=== PATIENT | female | born 1985 | race Caucasian/White ===

== ENCOUNTER 2019-04-15 20:49 | Observation (INO) | payer OTHER ==
[2019-04-15 21:41] LABS: Basophils % (A) 0 %; Eosinophils # (A) 0.1 k/uL (0-0.7); Eosinophils % (A) 0 %; HCT 36.6 % (34.0-46.0); HGB 12.5 gm/dL (11.4-16.0); Lymphocytes # (A) 0.8 k/uL (1.0-4.8); Lymphocytes % (A) 5 %; MCH 31.6 pg (25.0-35.0); MCHC 34.3 g/dL (31.0-37.0); MCV 92.1 fL (80.0-100.0); Mean Platelet Volume 6.8; Monocytes # (A) 0.4 k/uL (0-1.0); Monocytes % (A) 3 %; Neutrophils # (A) 13.1 k/uL (1.3-7.7); Neutrophils % (A) 91 %; Platelet Count 237 k/uL (150-450); RBC 3.97 m/uL (3.80-5.40); RDW 12.2 % (11.5-15.5); WBC 14.4 k/uL (3.8-10.6)
[2019-04-15 21:54] LABS: Appearance,Urine Cloudy (Clear); Bacteria,Urine Few /hpf; Bilirubin,Urine Negative (Negative); Blood,Urine Negative (Negative); Budding Yeast,Urine Occasional /hpf; Color,Urine Light Yellow; Glucose,Urine (UA) Negative (Negative); Hyaline Casts,Urine 1 /lpf (0-2); Ketones,Urine Negative (Negative); Leukocyte Esterase,Urine Large (Negative); Mucus,Urine Rare /hpf; Nitrite,Urine Negative (Negative); Protein,Urine Negative (Negative); RBC,Urine 2 /hpf (0-5); Specific Gravity,Urine 1.012 (1.001-1.035); Squamous Epithelial Cell,Urine 4 /hpf (0-4); Urobilinogen,Urine <2.0 mg/dL (<2.0); WBC,Urine 87 /hpf (0-5)
[2019-04-15 21:57] LABS: ALT 21 U/L (9-52); AST 19 U/L (14-36); African American GFR (CKD) >90 (>60 ml/min/1.73 sqM); Albumin 3.8 g/dL (3.5-5.0); Alkaline Phosphatase 48 U/L (38-126); Anion Gap 9 mmol/L; Blood Urea Nitrogen 6 mg/dL (7-17); Calcium 9.2 mg/dL (8.4-10.2); Carbon Dioxide 21 mmol/L (22-30); Chloride 103 mmol/L (98-107); Glucose 90 mg/dL (74-99); Potassium 3.5 mmol/L (3.5-5.1); Sodium 133 mmol/L (137-145); Total Bilirubin 0.5 mg/dL (0.2-1.3); Total Protein 6.5 g/dL (6.3-8.2)
[2019-04-15 22:05] LABS: INR 0.9 (<1.2); Partial Thromboplastin Time 21.5 sec (22.0-30.0); Prothrombin Time 9.4 sec (9.0-12.0)
[2019-04-15] MEDS ORDERED: cefTRIAXone IN SWFI 1,000 MG/10 ML SYRINGE IVP STA (22:39)
[2019-04-15] MEDS ORDERED: KETOROLAC 30 MG/ML 1 ML VIAL IVP STA (22:39)
[2019-04-15] MEDS ORDERED: SODIUM CHLORIDE 0.9% 1,000 ML IV ONE (22:39)
[2019-04-15] MEDS ORDERED: ACETAMINOPHEN TAB 325 MG TAB PO STA (22:40)
[2019-04-15] MEDS ORDERED: SODIUM CHLORIDE 0.9% 500 ML 500 ML IV ONE (22:46)
[2019-04-15] MEDS ORDERED: ACETAMINOPHEN TAB 500 MG TAB PO STA (22:46)
--- NOTE | 2019-04-15 23:58 | US ---
EXAMINATION TYPE: US kidneys/renal and bladder DATE OF EXAM: 04/15/2019 COMPARISON: NONE CLINICAL HISTORY: Right flank pain. Right flank pain x 6 hours. Patient is 18 weeks . EXAM MEASUREMENTS: Right Kidney: 11.6 x 6.7 x 4.3 cm Left Kidney: 12.0 x 5.1 x 4.7 cm Right Kidney: Renal pelvis appears dilated. There appears to be minimal hydronephrosis. Left Kidney: No hydronephrosis or masses seen. Measures upper limits of normal. Bladder: Appears anechoic. Bilateral Jets seen: Yes IMPRESSION: There is mild right-sided hydronephrosis but no obstruction seen. The ureteral jets are s een bilaterally. No renal mass.
--- NOTE | 2019-04-16 00:52 | ED ---
Fever HPI <Shavon Hernadez - Last Filed: 04/16/19 01:07> - General Source: patient Mode of arrival: ambulatory Limitations: no limitations <Can Renee - Last Filed: 04/16/19 07:36> - General Chief Complaint: Fever Stated Complaint: 18 WEEKS , POSS KIDNEY PROBLEM Time Seen by Provider: 04/15/19 22:05 - History of Present Illness Initial Comments: 34-year-old female patient presents to the emergency department today for evaluation of right flank pain. Patient states she is 18 weeks . States that symptoms started earlier this afternoon around 5 PM. She does report nausea with no vomiting. States she has had elevated temperature. She denies any abnormal vaginal bleeding or discharge. Denies any hematuria, dysuria, urinary frequency, urinary urgency. States she is currently receiving care with Dr. Jade. She is very. Denies history of kidney stone or infection. Patient denies any recent rash, shortness breath, chest pain, diarrhea, constipation, numbness, tingling, dizziness, weakness, headache, visual changes, or any other complaints. (Shavon Hernadez) - Related Data Allergies Allergy/AdvReac Type Severity Reaction Status Date / Time No Known Allergies Allergy Verified 04/15/19 21:03 Review of Systems ROS Other: All systems not noted in ROS Statement are negative. <Shavon Hernadez - Last Filed: 04/16/19 01:07> ROS Other: All systems not noted in ROS Statement are negative. <Can Renee - Last Filed: 04/16/19 07:36> ROS Statement: Those systems with pertinent positive or pertinent negative responses have been documented in the HPI. Past Medical History Past Medical History: No Reported History History of Any Multi-Drug Resistant Organisms: None Reported Past Surgical History: No Surgical Hx Reported Past Psychological History: No Psychological Hx Reported Smoking Status: Never smoker Past Alcohol Use History: None Reported Past Drug Use History: None Reported <Can Renee - Last Filed: 04/16/19 07:36> General Exam General appearance: alert, in no apparent distress, other (This is a well- developed, well-nourished adult female patient in no acute distress. Vital sign s upon presentation are temperature 101.8F, pulse 124, respirations 16, blood pressure 111/68, pulse ox 99% on room air.) Eye exam: Present: normal appearance, PERRL, EOMI. Absent: scleral icterus, conjunctival injection, periorbital swelling ENT exam: Present: normal exam, normal oropharynx, mucous membranes moist Respiratory exam: Present: normal lung sounds bilaterally. Absent: respiratory distress, wheezes, rales, rhonchi, stridor Cardiovascular Exam: Present: normal rhythm, tachycardia, normal heart sounds. Absent: systolic murmur, diastolic murmur, rubs, gallop, clicks GI/Abdominal exam: Present: soft, normal bowel sounds. Absent: distended, tenderness, guarding, rebound, rigid Back exam: Present: normal inspection, CVA tenderness (R). Absent: CVA tenderness (L) Neurological exam: Present: alert, oriented X3, CN II-XII intact Psychiatric exam: Present: normal affect, normal mood Skin exam: Present: warm, dry, intact, normal color. Absent: rash <Shavon Hernadez - Last Filed: 04/16/19 01:07> Limitations: no limitations <Can Renee - Last Filed: 04/16/19 07:36> Course <Can Renee - Last Filed: 04/16/19 07:36> Vital Signs 04/15/19 04/15/19 04/16/19 21:01 23:01 00:58 Temperature 101.8 F H 98.4 F Pulse Rate 124 H 89 Pulse Rate [ 95 Right Pulse Oximetery] Respiratory 16 18 18 Rate Blood Pressure 111/68 116/71 Blood Pressure 116/71 [Right Arm] O2 Sat by Pulse 99 97 99 Oximetry - Reevaluation(s) Reevaluation #1: 04/16/19 00:[address] Villela, covering the service. She would like the patient admitted to the OB service. Treatment recommendations are incorporated. (Can Renee) Medical Decision Making - Lab Data Result diagrams: 04/15/19 21:26 04/15/19 21:26 - Radiology Data Radiology results: report reviewed <Shavon Hernadez - Last Filed: 04/16/19 01:07> - Lab Data Result diagrams: 04/15/19 21:26 04/15/19 21:26 <Can Renee - Last Filed: 04/16/19 07:36> - Medical Decision Making 34-year-old female patient who is 18 weeks presents to the emergency department today for evaluation of fever, nausea, and right flank pain. Physical examination did reveal right CVA tenderness. Labs reviewed and did reveal white blood cell count of 14.4. Urinalysis showed large leukocyte esterase, 87 white blood cells, few bacteria, rare mucous, occasional yeast. Ultrasound of the kidneys and bladder showed evidence for right sided nephric edema. No sign of obstruction. Did discuss findings and results with the patient. We'll treat for pyelonephritis with IV Rocephin. My attending Dr. Renee discussed the case with second crusher OB Dr. Villela who recommends admission to the L&D unit. We will continue Rocephin and IV fluids. (Shavon Hernadez) I saw this patient in conjunction with the nurse practitioner. I performed independent history and physical exam. Agree with case management. (Can Renee) - Lab Data Lab Results 04/15/19 04/15/19 04/15/19 Range/Units 21:26 21:26 21:26 WBC 14.4 H (3.8-10.6) k/uL RBC 3.97 (3.80-5.40) m/uL Hgb 12.5 (11.4-16.0) gm/dL Hct 36.6 (34.0-46.0) % MCV 92.1 (80.0-100.0) fL MCH 31.6 (25.0-35.0) pg MCHC 34.3 (31.0-37.0) g/dL RDW 12.2 (11.5-15.5) % Plt Count 237 (150-450) k/uL Neutrophils % 91 % Lymphocytes % 5 % Monocytes % 3 % Eosinophils % 0 % Basophils % 0 % Neutrophils # 13.1 H (1.3-7.7) k/uL Lymphocytes # 0.8 L (1.0-4.8) k/uL Monocytes # 0.4 (0-1.0) k/uL Eosinophils # 0.1 (0-0.7) k/uL Basophils # 0.0 (0-0.2) k/uL PT (9.0-12.0) sec INR (<1.2) APTT (22.0-30.0) sec Sodium 133 L (137-145) mmol/L Potassium 3.5 (3.5-5.1) mmol/L Chloride 103 (98-107) mmol/L Carbon Dioxide 21 L (22-30) mmol/L Anion Gap 9 mmol/L BUN 6 L (7-17) mg/dL Creatinine 0.49 L (0.52-1.04) mg/dL Est GFR (CKD-EPI)AfAm >90 (>60 ml/min/1.73 sqM) Est GFR (CKD-EPI)NonAf >90 (>60 ml/min/1.73 sqM) Glucose 90 (74-99) mg/dL Plasma Lactic Acid Jim 1.3 (0.7-2.0) mmol/L Calcium 9.2 (8.4-10.2) mg/dL Total Bilirubin 0.5 (0.2-1.3) mg/dL AST 19 (14-36) U/L ALT 21 (9-52) U/L Alkaline Phosphatase 48 (38-126) U/L Total Protein 6.5 (6.3-8.2) g/dL Albumin 3.8 (3.5-5.0) g/dL Urine Color Urine Appearance (Clear) Urine pH (5.0-8.0) Ur Specific [place] (1.001-1.035) Urine Protein (Negative) Urine Glucose (UA) (Negative) Urine Ketones (Negative) Urine Blood (Negative) Urine Nitrite (Negative) Urine Bilirubin (Negative) Urine Urobilinogen (<2.0) mg/dL Ur Leukocyte Esterase (Negative) Urine RBC (0-5) /hpf Urine WBC (0-5) /hpf Ur Squamous Epith Cells (0-4) /hpf Urine Bacteria (None) /hpf Hyaline Casts (0-2) /lpf Urine Mucus (None) /hpf Urine Yeast (Budding) (None) /hpf 04/15/19 04/15/19 Range/Units 21:26 21:26 WBC (3.8-10.6) k/uL RBC (3.80-5.40) m/uL Hgb (11.4-16.0) gm/dL Hct (34.0-46.0) % MCV (80.0-100.0) fL MCH (25.0-35.0) pg MCHC (31.0-37.0) g/dL RDW (11.5-15.5) % Plt Count (150-450) k/uL Neutrophils % % Lymphocytes % % Monocytes % % Eosinophils % % Basophils % % Neutrophils # (1.3-7.7) k/uL Lymphocytes # (1.0-4.8) k/uL Monocytes # (0-1.0) k/uL Eosinophils # (0-0.7) k/uL Basophils # (0-0.2) k/uL PT 9.4 (9.0-12.0) sec INR 0.9 (<1.2) APTT 21.5 L (22.0-30.0) sec Sodium (137-145) mmol/L Potassium (3.5-5.1) mmol/L Chloride (98-107) mmol/L Carbon Dioxide (22-30) mmol/L Anion Gap mmol/L BUN (7-17) mg/dL Creatinine (0.52-1.04) mg/dL Est GFR (CKD-EPI)AfAm (>60 ml/min/1.73 sqM) Est GFR (CKD-EPI)NonAf (>60 ml/min/1.73 sqM) Glucose (74-99) mg/dL Plasma Lactic Acid Jim (0.7-2.0) mmol/L Calcium (8.4-10.2) mg/dL Total Bilirubin (0.2-1.3) mg/dL AST (14-36) U/L ALT (9-52) U/L Alkaline Phosphatase (38-126) U/L Total Protein (6.3-8.2) g/dL Albumin (3.5-5.0) g/dL Urine Color Light Yellow Urine Appearance Cloudy H (Clear) Urine pH 7.0 (5.0-8.0) Ur Specific [place] 1.012 (1.001-1.035) Urine Protein Negative (Negative) Urine Glucose (UA) Negative (Negative) Urine Ketones Negative (Negative) Urine Blood Negative (Negative) Urine Nitrite Negative (Negative) Urine Bilirubin Negative (Negative) Urine Urobilinogen <2.0 (<2.0) mg/dL Ur Leukocyte Esterase Large H (Negative) Urine RBC 2 (0-5) /hpf Urine WBC 87 H (0-5) /hpf Ur Squamous Epith Cells 4 (0-4) /hpf Urine Bacteria Few H (None) /hpf Hyaline Casts 1 (0-2) /lpf Urine Mucus Rare H (None) /hpf Urine Yeast (Budding) Occasional H (None) /hpf - Radiology Data Ultrasound of the kidneys and bladder was obtained. Report was reviewed in its entirety. Impression by Dr. Olvera shows mild right-sided hydronephrosis but no obstruction. The ureteral jets are seen bilaterally. No renal mass. (Shavon Hernadez) Disposition Decision to Admit Reason: Admit from EC Decision Date: 04/16/19 Decision Time: 01:00 <Shavon Henradez - Last Filed: 04/16/19 01:07> <Can Renee - Last Filed: 04/16/19 07:36> Clinical Impression: Pyelonephritis during Disposition: ADMITTED IP TO THIS [facility] Condition: Serious
[2019-04-16] MEDS ORDERED: NALOXONE 0.4 MG/ML 1 ML VIAL IV PRN (00:54)
[2019-04-16] MEDS ORDERED: SODIUM CHLORIDE 0.9% 1,000 ML IV SCH (01:00)
[2019-04-16 02:36] VITALS: BMI 27.5
[2019-04-16] MEDS ORDERED: ONDANSETRON 4 MG/2 ML VIAL IVP PRN (03:25)
[2019-04-16] MEDS ORDERED: ACETAMINOPHEN IV (For NPO) 1,000 MG in EMPTY BAG 1 BAG IVPB STA (03:25)
--- NOTE | 2019-04-16 09:32 | P.HPOB ---
History of Present Illness H&P Date: 04/16/19 Chief Complaint: Pain with urination, fevers This is a 34-year-old 3 para 2002 woman who had rather abrupt onset of pain with urination, high fevers and chills yesterday evening at about 6 PM. She is approximately 18 weeks , estimated due date 09/14/2019. She denies alber blood in the urine or vaginal discharge. She has mild right sided back pain. She did have nausea and vomiting yesterday evening. She was seen in the emergency room and urinalysis is positive. White blood cell count of 14.4. Renal ultrasound shows mild right-sided hydronephrosis with no obstruction. Temperature max at 3 AM was 103. She is admitted with pyelonephritis for IV antibiotics. Review of Systems Constitutional: Reports chills, Reports fever, Reports sweats Cardiovascular: Denies chest pain, Denies shortness of breath Respiratory: Denies cough Gastrointestinal: Reports nausea, Reports vomiting, Denies BRBPR, Denies change in bowel habits, Denies constipation, Denies diarrhea Genitourinary: Reports dysuria, Reports flank pain, Reports urgency, Reports urinary frequency, Denies hematuria, Denies kidney stones, Denies vaginal discharge Musculoskeletal: Reports low back pain Psychiatric: Denies depression Hematologic/Lymphatic: Denies easy bleeding, Denies easy bruising Past Medical History Past Medical History: No Reported History Additional Past Medical History / Comment(s): 2 History of Any Multi-Drug Resistant Organisms: None Reported Past Surgical History: No Surgical Hx Reported Past Anesthesia/Blood Transfusion Reactions: Motion Sickness Past Psychological History: No Psychological Hx Reported Smoking Status: Never smoker Past Alcohol Use History: None Reported Past Drug Use History: None Reported - Past Family History Mother History Unknown: Yes Medications and Allergies Allergies Allergy/AdvReac Type Severity Reaction Status Date / Time No Known Allergies Allergy Verified 04/15/19 21:03 Exam Vital Signs Temp Pulse Pulse Resp BP BP Pulse Ox 04/16/19 08:00 98.3 F 100 16 98/53 04/16/19 05:25 100.2 F H 110 H 16 98/51 04/16/19 04:30 102.3 F H 04/16/19 03:35 103 F H 117 H 16 100/50 04/16/19 02:30 97.9 F 110 H 16 127/80 98 04/16/19 02:29 97.9 F 110 H 16 127/80 98 04/16/19 00:58 98.4 F 89 18 116/71 99 04/15/19 23:01 95 18 116/71 97 04/15/19 21:01 101.8 F H 124 H 16 111/68 99 Intake and Output 04/15/19 04/16/19 04/16/19 22:59 06:59 14:59 Other: Weight 70.488 kg This is a pleasant female in no acute distress. Targeted physical exam is performed. The lungs are clear to auscultation bilaterally and her breathing is unlabored. Her heart is of regular rate and rhythm. The abdomen is soft and nontender. She has a gravid uterus consistent with 18 week size gestation. She has mild suprapubic tenderness. She has mild right CVA tenderness. Pelvic examination is deferred. Bilateral extremities free of any edema or erythema. She has positive heart tones by external Doppler. Results Result Diagrams: 04/15/19 21:26 04/15/19 21:26 Abnormal Lab Results - Last 24 Hours (Table) 04/15/19 04/15/19 04/15/19 Range/Units 21:26 21:26 21:26 WBC 14.4 H (3.8-10.6) k/uL Neutrophils # 13.1 H (1.3-7.7) k/uL Lymphocytes # 0.8 L (1.0-4.8) k/uL APTT 21.5 L (22.0-30.0) sec Sodium 133 L (137-145) mmol/L Carbon Dioxide 21 L (22-30) mmol/L BUN 6 L (7-17) mg/dL Creatinine 0.49 L (0.52-1.04) mg/dL Urine Appearance (Clear) Ur Leukocyte Esterase (Negative) Urine WBC (0-5) /hpf Urine Bacteria (None) /hpf Urine Mucus (None) /hpf Urine Yeast (Budding) (None) /hpf 04/15/19 Range/Units 21:26 WBC (3.8-10.6) k/uL Neutrophils # (1.3-7.7) k/uL Lymphocytes # (1.0-4.8) k/uL APTT (22.0-30.0) sec Sodium (137-145) mmol/L Carbon Dioxide (22-30) mmol/L BUN (7-17) mg/dL Creatinine (0.52-1.04) mg/dL Urine Appearance Cloudy H (Clear) Ur Leukocyte Esterase Large H (Negative) Urine WBC 87 H (0-5) /hpf Urine Bacteria Few H (None) /hpf Urine Mucus Rare H (None) /hpf Urine Yeast (Budding) Occasional H (None) /hpf Microbiology - Last 24 Hours (Table) 04/15/19 21:26 Urine Culture - Preliminary Urine,Voided US - abdomen: report reviewed Assessment and Plan (1) Pyelonephritis during Current Visit: Yes Status: Acute Code(s): O23.00 - INFECTIONS OF KIDNEY IN , UNSPECIFIED TRIMESTER SNOMED Code(s): 54893439516029 Plan: 34-year-old 3 para 2 woman admitted at 18 weeks gestation for acute pyelonephritis. T-max 103 at 3 AM on 04/16/2019. She is on IV Rocephin. Plan will be to continue IV antibiotics until at least 24 hours afebrile. Plan is reviewed with the patient and her and all questions are answered. Urine cultures pending. monitoring by external Doppler once daily. DVT prophylaxis. Time with Patient: Less than 30
[2019-04-16] MEDS: LACTATED RINGERS 1,000 ML IV SCH (10:51)
[2019-04-16 10:53] LABS: Basophils % (A) 0 %; Eosinophils % (A) 0 %; HCT 32.4 % (34.0-46.0); HGB 11.1 gm/dL (11.4-16.0); Lymphocytes # (A) 0.9 k/uL (1.0-4.8); Lymphocytes % (A) 6 %; MCH 32.4 pg (25.0-35.0); MCHC 34.4 g/dL (31.0-37.0); MCV 94.3 fL (80.0-100.0); Mean Platelet Volume 6.2; Monocytes # (A) 0.4 k/uL (0-1.0); Monocytes % (A) 3 %; Neutrophils # (A) 13.4 k/uL (1.3-7.7); Neutrophils % (A) 91 %; Platelet Count 230 k/uL (150-450); RBC 3.43 m/uL (3.80-5.40); RDW 12.3 % (11.5-15.5); WBC 14.8 k/uL (3.8-10.6)
[2019-04-17] MEDS: LACTATED RINGERS 1,000 ML IV SCH ×5 (03:53→21:05)
[2019-04-17 07:17] LABS: Basophils % (A) 0 %; Eosinophils # (A) 0.1 k/uL (0-0.7); Eosinophils % (A) 1 %; HCT 28.8 % (34.0-46.0); Lymphocytes # (A) 1.1 k/uL (1.0-4.8); Lymphocytes % (A) 11 %; MCH 32.8 pg (25.0-35.0); MCHC 34.6 g/dL (31.0-37.0); MCV 94.6 fL (80.0-100.0); Mean Platelet Volume 5.9; Monocytes # (A) 0.4 k/uL (0-1.0); Monocytes % (A) 4 %; Neutrophils # (A) 8.6 k/uL (1.3-7.7); Neutrophils % (A) 83 %; Platelet Count 194 k/uL (150-450); RBC 3.05 m/uL (3.80-5.40); RDW 12.5 % (11.5-15.5); WBC 10.4 k/uL (3.8-10.6)
--- NOTE | 2019-04-17 10:54 | P.PN ---
Subjective Progress Note Date: 04/17/19 Principal diagnosis: 18+ weeks, right pyelonephritis The patient reports she feels significantly better than upon admission. She does still have some right flank discomfort which is significantly improved. She denies nausea and has not felt febrile in some time. The fetus is active. Objective - Vital Signs Vital signs: Vital Signs Temp 98.8 F 04/17/19 08:39 Pulse 109 H 04/17/19 08:39 Resp 16 04/17/19 08:39 BP 104/57 04/17/19 08:39 Pulse Ox 98 04/17/19 04:45 Intake & Output 04/16/19 04/17/19 04/17/19 18:59 06:59 18:59 Intake Total 300 Balance 300 Intake: Oral 300 Other: # Voids 2 4 - Exam In general, this is a well-developed, well-nourished white female in no acute distress. Her abdomen is gravid, nondistended, soft, nontender, and without any palpable masses aside from uterine fundus which is below the umbilicus. There is no left flank tenderness however the right flank remains slightly tender though significantly improved by the patient's report. Her extremities have no significant cyanosis, clubbing, or edema and are nontender to palpation bilaterally. - Labs CBC & Chem 7: 04/17/19 06:46 04/15/19 21:26 Labs: Abnormal Lab Results - Last 24 Hours (Table) 04/16/19 04/17/19 Range/Units 10:33 06:46 WBC 14.8 H (3.8-10.6) k/uL RBC 3.43 L 3.05 L (3.80-5.40) m/uL Hgb 11.1 L 10.0 L (11.4-16.0) gm/dL Hct 32.4 L 28.8 L (34.0-46.0) % Neutrophils # 13.4 H 8.6 H (1.3-7.7) k/uL Lymphocytes # 0.9 L (1.0-4.8) k/uL Microbiology - Last 24 Hours (Table) 04/15/19 21:26 Blood Culture - Preliminary Blood No Growth after 24 hours Assessment and Plan (1) Pyelonephritis during Current Visit: Yes Status: Acute Code(s): O23.00 - INFECTIONS OF KIDNEY IN , UNSPECIFIED TRIMESTER SNOMED Code(s): 88453805663910 Plan: Continue IV antibiotics until at least 48 hours afebrile and with significant clinical improvement. Given her current course, I would anticipate possible dis charge home tomorrow morning pending at complications. I have strongly encouraged her to ambulate in the hallways routinely. Otherwise continue routine care.
[2019-04-17] MEDS: ACETAMINOPHEN TAB 325 MG TAB PO PRN ×2 (11:36→19:51)
[2019-04-18] MEDS: LACTATED RINGERS 1,000 ML IV SCH (04:10)
[2019-04-18 09:14] VITALS: BP 105/64; PULSE 99; RESP 16; TEMP 99
--- NOTE | 2019-04-18 11:10 | P.DS ---
Providers Date of admission: 04/16/19 01:12 Expected date of discharge: 04/18/19 Attending physician: Rox Villela Primary care physician: Beto Griffith - Discharge Diagnosis(es) (1) Pyelonephritis during Current Visit: Yes Status: Acute Hospital Course: The patient is a 34-year-old 3 para 2001Admitted through the emergency room with of acute onset of pain with urination as well as fever and chills at 18 weeks of gestation. In the emergency room, she was found to have a temperature of approximately 103 with an elevated white blood cell count. The diagnosis of right pyelonephritis was made and the patient is admitted for IV antibiotics. She was started on Rocephin and defervesced almost immediately. At presentation, she had significant right flank pain and abdominal tenderness as result. Over the course of the next 48 hours she had no further spikes in temperature with the highest being 100.3 less than 24 hours after admission. She had significant resolution of all of her symptoms over the course of her admission as well. At slightly more than 48 hours after admission, she was found with a normal white count and had been afebrile for greater than 48 hours with significant clinical improvement. She denied any ongoing flank pain at this time and was deemed stable for discharge. There were no complicatio ns during the and the fetus remains active at this time. She's had no vaginal concerns of any kind either. She was discharged home to follow-up in the office as previously scheduled in 2 days for anatomic ultrasound as well as normal visit. Urine culture demonstrated greater than 100,000 colonies of E. coli sensitive to every antibiotics tested. As result, she was given a prescription for Bactrim DS, 1 by mouth twice a day 7 days, dispense 14 with no refills. She was instructed to call for any increasing symptoms or any other problems as needed. Procedures: #1. IV antibiotics #2. Urine culture #3. IV hydration Patient Condition at Discharge: Good Plan - Discharge Summary Follow up Appointment(s)/Referral(s): Beto Griffith Jr, DO [Primary Care Provider] - 1-2 days Yuliana Jade MD [STAFF PHYSICIAN] - 1-2 Days Discharge Disposition: HOME SELF-CARE
== END 2019-04-18 11:50 | disposition home or self-care (01) ==
LOC: EC 20:49 → 4FBP 04-16 01:12
PROVIDERS: ADMIT Obstetrics & Gynecology Obstetrics; ATTEND Obstetrics & Gynecology Obstetrics
DX: O23.02 Infections of kidney in pregnancy, second trimester (principal); N10 Acute pyelonephritis; Z3A.18 18 weeks gestation of pregnancy
CPT/HCPCS: 96361 ×3; 96365; 96367; 96375 ×2; 99284; 36415; 80053; 83605; 85025 ×3; 85610; 85730; 81001; 87040; 87086; 87077; 87186; 76770; G0378 ×3; J2405; J0696 ×3; J0131

== ENCOUNTER 2019-09-14 14:48 | Inpatient (IN) | payer OTHER ==
[2019-09-16] MEDS ORDERED: TERBUTALINE 1 MG/ML VIAL SQ PRN (06:19)
[2019-09-16] MEDS ORDERED: METHYLERGONOVINE 0.2 MG/ML 1 ML AMP IM PRN (06:19)
[2019-09-16] MEDS ORDERED: CARBOPROST TROMETHAMINE 250 MCG/ML 1 ML AMP IM PRN (06:19)
[2019-09-16] MEDS ORDERED: LIDOCAINE 0.5% (PF) 5 MG/ML (50 ML SDV) SQ PRN (06:19)
[2019-09-16] MEDS ORDERED: OXYTOCIN 10 UNIT/ML 1 ML VIAL IM PRN (06:19)
[2019-09-16] MEDS ORDERED: PENICILLIN G POTASSIUM 5,000,000 UNIT in DEXTROSE 5% IN WATER 100 ML IVPB STA ×2 (06:19)
[2019-09-16] MEDS ORDERED: OXYTOCIN 30 UNITS/500 ML NS 30 UNIT in SALINE 1 500ML.BAG IV SCH (06:30)
[2019-09-16] MEDS: LACTATED RINGERS 1,000 ML IV SCH ×3 (06:43→11:57)
--- NOTE | 2019-09-16 07:07 | P.HPOB ---
History of Present Illness H&P Date: 09/16/19 Chief Complaint: Postdates This is a 34 year old 3 para 2002 woman with an estimated due date of 09/14/2019 by last menstrual period consistent with second trimester ultrasound. She is admitted at 40-2/7 weeks' gestation for postdates induction of labor. Her was complicated by pyelonephritis at 18 weeks which was treated with inpatient antibiotics. The rest the has been smooth. She is known group B strep positive. Laboratory data: Blood type O positive, antibody screen negative, rubella immune, VDRL nonreactive, hepatitis B surface antigen negative, gonorrhea and clinic cultures negative, diabetes screening negative, group B strep positive. Obstetric history: 2 at term in 2009 and 2012, uncomplicated Review of Systems All systems: negative Past Medical History Past Medical History: No Reported History Additional Past Medical History / Comment(s): 2 History of Any Multi-Drug Resistant Organisms: None Reported Past Surgical History: No Surgical Hx Reported Past Anesthesia/Blood Transfusion Reactions: Motion Sickness Past Psychological History: No Psychological Hx Reported Smoking Status: Never smoker Past Alcohol Use History: None Reported Past Drug Use History: None Reported - Past Family History Mother History Unknown: Yes Medications and Allergies Home Medications Medication Instructions Recorded Confirmed Type Pnv,Calcium 72/Iron/Folic Acid 1 each PO DAILY 09/16/19 09/16/19 History [ Plus Tablet] Allergies Allergy/AdvReac Type Severity Reaction Status Date / Time No Known Allergies Allergy Verified 09/16/19 06:17 Exam Intake and Output 09/15/19 09/16/19 09/16/19 22:59 06:59 14:59 Other: Weight 76.657 kg This is a pleasant, comfortable appearing female who is visibly gravid. HEENT exam is unremarkable. Breathing is unlabored and the heart is regular rate and rhythm. The abdomen is gravid with a fundal height of approximately 40 cm. Estimated weight 7-7-1/2 pounds. On pelvic examination the cervix is 2 cm dilated, 70% effaced and the vertex in the -3 station. Artificial rupture of membranes is undertaken and clear fluid is noted. heart tones are category 1 by external monitoring and she is not regularly cynthia. Assessment and Plan (1) GBS (group B Streptococcus carrier), +RV culture, currently Current Visit: Yes Status: Acute Code(s): O99.820 - STREPTOCOCCUS B CARRIER STATE COMPLICATING SNOMED Code(s): 7228985937082 (2) Post-dates Current Visit: Yes Status: Acute Code(s): O48.0 - POST-TERM SNOMED Code(s): 35552768 Plan: 34-year-old 3 para 2 at 40-2/7 weeks' gestation admitted for induction of labor. Group B strep positive, prophylactic antibiotics have been initiated. Rh+. status currently reassuring. Pitocin induction of labor per protocol. May have an epidural anesthetic upon request in active labor. Anticipate normal spontaneous vaginal delivery.
[2019-09-16 07:40] LABS: Basophils % (A) 0 %; Eosinophils # (A) 0.1 k/uL (0-0.7); Eosinophils % (A) 1 %; HCT 37.6 % (34.0-46.0); HGB 12.9 gm/dL (11.4-16.0); Lymphocytes % (A) 18 %; MCH 31.6 pg (25.0-35.0); MCHC 34.2 g/dL (31.0-37.0); MCV 92.4 fL (80.0-100.0); Mean Platelet Volume 7.6; Monocytes # (A) 0.6 k/uL (0-1.0); Monocytes % (A) 6 %; Neutrophils % (A) 73 %; Platelet Count 242 k/uL (150-450); RBC 4.07 m/uL (3.80-5.40); RDW 12.5 % (11.5-15.5); WBC 10.9 k/uL (3.8-10.6)
[2019-09-16] MEDS: PENICILLIN G POTASSIUM 2,500,000 UNIT in DEXTROSE 5% IN WATER 100 ML IVPB SCH ×2 (10:33)
[2019-09-16] MEDS ORDERED: ePHEDrine SULFATE/0.9% NACL/PF 50 MG/5 ML SYRINGE IV ONE (11:14)
[2019-09-16] MEDS ORDERED: SODIUM CHLORIDE 0.9% 100 ML BAG ONE (11:14)
[2019-09-16] MEDS ORDERED: fentaNYL (PF) 50 MCG/ML 5 ML AMP ONE (11:14)
[2019-09-16] MEDS ORDERED: ROPIVACAINE 5MG/ML 20ML VIAL ONE (11:14)
[2019-09-16] MEDS ORDERED: diphenhydrAMINE 50 MG CAP PO PRN (14:32)
[2019-09-16] MEDS ORDERED: ACETAMINOPHEN TAB 325 MG TAB PO PRN (14:32)
[2019-09-16] MEDS ORDERED: SIMETHICONE 80 MG CHEWABLE PO PRN (14:32)
[2019-09-16] MEDS ORDERED: IBUPROFEN 600 MG TAB PO PRN (14:32)
[2019-09-16] MEDS ORDERED: WITCH HAZEL 1 EACH MED..PAD TOPICAL PRN (14:32)
[2019-09-16] MEDS ORDERED: HYDROCORTISONE 2.5% RECTAL CREAM 30 GM TUBE RECTAL PRN (14:32)
[2019-09-16] MEDS ORDERED: diphenhydrAMINE 25 MG CAP PO PRN (14:32)
[2019-09-16] MEDS ORDERED: BENZOCAINE/MENTHOL SPRAY 1 GM/SPRAY AEROSOL TOPICAL PRN (14:32)
[2019-09-16] MEDS ORDERED: LANOLIN CREAM 5 GM TUBE TOPICAL PRN (14:32)
[2019-09-16] MEDS ORDERED: ZOLPIDEM 5 MG TAB PO PRN (14:32)
[2019-09-16] MEDS ORDERED: diphenhydrAMINE 50 MG/ML 1 ML VIAL IVP PRN ×2 (14:32)
--- NOTE | 2019-09-16 14:32 | P.PROBDLV ---
Vaginal Delivery Note - . Vaginal Delivery Note: Findings: Male in the vertex right occiput anterior position with Apgars of 7 at 1 minute and 9 at 5 minutes weighing 8 lbs. 5 oz., 3775 g. Nuchal cord 2. Shoulder dystocia. EBL 100 mL's. Delivery summary: This is a 34 year old 3 para 2 woman who is admitted at 40-2/7 weeks' gestation for postdates induction of labor. Following admission she went underwent a Pitocin induction of labor per protocol. She received group B strep prophylactic antibiotics. She underwent artificial rupture of membranes at 2 cm dilated and clear fluid was noted. She had category 1 heart tones throughout the first stage of labor. She progressed to 4 cm dilated at which time she received an epidural anesthetic. Following placement of the epidural she progressed to 7 cm dilated. She reached complete cervical dilation by approximately 1400. She commenced pushing. After approximately 15 minutes she was . She was repositioned, prepped and draped. It is additional maternal effort the head did deliver and an immediate "turtle sign" was noted. Assessment was the infant was in the right occiput anterior position. A nuchal cord 1 was reduced. Gentle downward traction on the shoulder did not facilitate any movement. The patient was placed in Criselda position and the anterior, right shoulder was internally rotated, towards the maternal right. This did facilitate delivery of the infant. Total time of shoulder dystocia was less than 30 seconds. The infant was delivered onto the field and the nose and mouth were bulb suctioned. Infant was initially placed on the maternal abdomen where the cord was clamped and cut. Infant was taken to the warmer where Apgars were 7 at 1 minute and 9 at 5 minutes. Infant was noted to be vigorous and moving all extremities equally. An intact, three- vessel cord placenta was then delivered following a 5 minute third stage of labor. The perineum was inspected as was the vagina and cervix and no lacerations were noted. The uterus was massaged and was noted to be firm. Pitocin had been initiated on immediately following delivery of the infant. All counts were correct. Both mother and were doing well post delivery. Events of delivery including the short shoulder dystocia were reviewed with the patient and the father of the baby. All questions were answered.
[2019-09-16] MEDS ORDERED: OXYTOCIN 20 UNITS/1000 ML NS 1,000 ML IV SCH (14:45)
[2019-09-16] MEDS: SENNOSIDES-DOCUSATE SODIUM 1 EACH TAB PO SCH (20:54)
[2019-09-17 07:22] LABS: Basophils % (A) 0 %; Eosinophils # (A) 0.1 k/uL (0-0.7); Eosinophils % (A) 1 %; HCT 33.6 % (34.0-46.0); HGB 11.5 gm/dL (11.4-16.0); Lymphocytes % (A) 16 %; MCH 31.7 pg (25.0-35.0); MCHC 34.2 g/dL (31.0-37.0); MCV 92.5 fL (80.0-100.0); Mean Platelet Volume 7.5; Monocytes # (A) 0.7 k/uL (0-1.0); Monocytes % (A) 6 %; Neutrophils # (A) 9.9 k/uL (1.3-7.7); Neutrophils % (A) 76 %; Platelet Count 228 k/uL (150-450); RBC 3.63 m/uL (3.80-5.40); RDW 12.7 % (11.5-15.5)
--- NOTE | 2019-09-17 08:32 | P.DS ---
Providers Date of admission: 09/16/19 06:03 Expected date of discharge: 09/17/19 Attending physician: Yuliana Jade Primary care physician: Beto Griffith - Discharge Diagnosis(es) (1) GBS (group B Streptococcus carrier), +RV culture, currently Current Visit: Yes Status: Acute (2) Post-dates Current Visit: Yes Status: Acute (3) Normal spontaneous vaginal delivery Current Visit: Yes Status: Acute (4) Shoulder dystocia, delivered, current hospitalization Current Visit: Yes Status: Acute (5) Nuchal cord Current Visit: Yes Status: Acute Hospital Course: This is a 34-year-old 3 now para 3 woman who was admitted at 40-2/7 weeks' gestation with postdates induction of labor. She was group B strep positive and prophylactic antibiotics were initiated upon admission. She underwent a Pitocin induction of labor per protocol. She underwent artificial rupture of membranes and received an epidural anesthetic. She had an uncomplicated and a rapid progression of labor through the first stage. She reached complete cervical dilation and commenced pushing. After approximately 20 minutes second stage of labor the infant crowned. With delivery of the head and immediate "turtle sign" was noted. The patient the was placed in Criselda position and the was delivered with internal rotation of the anterior shoulder. Total time of dystocia was less than 30 seconds. Infant's Apgars were 7 at 1 minute and 9 at 5 minutes. Please see the delivery summary for details. Patient's course was unremarkable. The infant is doing well and freely moving all extremities with no sign of injuries or deficits. The patient's lochia is moderate, her fundus is firm and her vital signs are stable. She was therefore discharged home on day #1 with routine instructions for care and follow-up. Patient Condition at Discharge: Good Plan - Discharge Summary New Discharge Prescriptions: No Action Pnv,Calcium 72/Iron/Folic Acid [ Plus Tablet] 1 each PO DAILY Discharge Medication List Pnv,Calcium 72/Iron/Folic Acid [ Plus Tablet] 1 each PO DAILY 09/16/19 [History] Follow up Appointment(s)/Referral(s): Yuliana Jade MD [STAFF PHYSICIAN] - 6 Weeks Activity/Diet/Wound Care/Special Instructions: Follow-up in the office in 6 weeks . Call with any concerning signs or symptoms including heavy vaginal bleeding, severe abdominal pain, fever greater than 101, swelling or redness of the lower extremities, foul vaginal discharge, or signs of depression. Nothing in the vagina for 6 weeks after delivery, specifically no intercourse. Discharge Disposition: HOME SELF-CARE
[2019-09-17] MEDS: SENNOSIDES-DOCUSATE SODIUM 1 EACH TAB PO SCH ×2 (09:12→20:05)
[2019-09-17 09:33] VITALS: RESP 20
[2019-09-17 18:20] VITALS: BP 106/70; PULSE 82; TEMP 98
[2019-09-17] MEDS: PENICILLIN G POTASSIUM 2,500,000 UNIT in DEXTROSE 5% IN WATER 100 ML IVPB SCH ×2 (20:41)
== END 2019-09-17 21:15 | disposition home or self-care (01) | DRG 807 ==
LOC: 4FBP 09-16 06:03
PROVIDERS: ADMIT Obstetrics & Gynecology; ATTEND Obstetrics & Gynecology
PROC: 3E033VJ Introduction of Other Hormone into Peripheral Vein, Percutaneous Approach (ICD-10-PCS; principal; 2019-09-16)
PROC: 3E0R3BZ Introduction of Anesthetic Agent into Spinal Canal, Percutaneous Approach (ICD-10-PCS; principal; 2019-09-16)
PROC: 10E0XZZ Delivery of Products of Conception, External Approach (ICD-10-PCS; principal; 2019-09-16)
PROC: 00HU33Z Insertion of Infusion Device into Spinal Canal, Percutaneous Approach (ICD-10-PCS; principal; 2019-09-16)
PROC: 10907ZC Drainage of Amniotic Fluid, Therapeutic from Products of Conception, Via Natural or Artificial Opening (ICD-10-PCS; principal; 2019-09-16)
DX: O48.0 Post-term pregnancy (principal); Z37.0 Single live birth; O69.81X0 Labor and delivery complicated by cord around neck, without compression, not applicable or unspecified; O99.824 Streptococcus B carrier state complicating childbirth; Z3A.40 40 weeks gestation of pregnancy
CPT/HCPCS: 85025; 86850; 86900; 86901

== ENCOUNTER 2020-09-01 15:07 | Emergency (ER) | payer OTHER ==
[2020-09-01 15:11] VITALS: BP 117/77; PULSE 104; RESP 20; TEMP 98.7
[2020-09-01] MEDS ORDERED: SODIUM CHLORIDE 0.9% 1,000 ML IV STA (15:21)
[2020-09-01] MEDS ORDERED: KETOROLAC 15 MG/ML 1 ML VIAL IVP STA (15:21)
[2020-09-01] MEDS ORDERED: ONDANSETRON 4 MG/2 ML VIAL IVP STA (15:21)
--- NOTE | 2020-09-01 15:33 | ED ---
Abdominal Pain HPI - General Chief Complaint: Abdominal Pain Stated Complaint: Abd Pain Source: patient Mode of arrival: ambulatory Limitations: no limitations - History of Present Illness Initial Comments: The patient relates that her abdominal pain became upon waking this morning. It is primarily into her left lower quadrant but does seem to radiate into her mid abdomen and her right lower quadrant. She denies any previous similar incidents. She states that it was fairly severe earlier and slightly relieved with Tylenol. It seemed to be worse with standing or walking. She had some nausea but denies any vomiting, constipation, diarrhea, fever, or chills. She denies any previous history of ovarian cysts or uterine pathology. She has had previous urinary tract infection and pyelonephritis which required hospitalization when she was . She denies any possibility of currently. No other complaints or modifying factors. - Related Data Home Medications Medication Instructions Recorded Confirmed Pnv,Calcium 72/Iron/Folic Acid 1 each PO DAILY 09/16/19 09/16/19 [ Plus Tablet] Previous Rx's Medication Instructions Recorded Nitrofurantoin Monohyd/M-Cryst 100 mg PO Q12HR #14 cap 09/01/20 [Macrobid] Ondansetron [Zofran] 8 mg PO Q8HR PRN #12 tab 09/01/20 traMADol HCl [Ultram] 50 - 100 mg PO Q6H PRN #15 tab 09/01/20 Allergies Allergy/AdvReac Type Severity Reaction Status Date / Time No Known Allergies Allergy Verified 09/01/20 15:11 Review of Systems ROS Statement: Those systems with pertinent positive or pertinent negative responses have been documented in the HPI. ROS Other: All systems not noted in ROS Statement are negative. Past Medical History Past Medical History: No Reported History Additional Past Medical History / Comment(s): 2 History of Any Multi-Drug Resistant Organisms: None Reported Past Surgical History: No Surgical Hx Reported Past Anesthesia/Blood Transfusion Reactions: Motion Sickness Past Psychological History: No Psychological Hx Reported Smoking Status: Never smoker Past Alcohol Use History: None Reported Past Drug Use History: None Reported - Past Family History Mother History Unknown: Yes General Exam - General Exam Comments Initial Comments: Constitutional: Alert and oriented, no apparent distress Vitals: Reviewed, please see nursing notes HEENT: No gross trauma identified, trachea midline, no respiratory distress Neck: No tenderness, good range of motion Heart: Regular rate and rhythm without murmur Lungs: Clear to auscultation bilaterally, no wheezing rhonchi or rales Abdomen: Mild tenderness noted to the left lower quadrant. There is slight tenderness in the mid abdomen and right lower quadrant. There is no peritoneal signs or flank tenderness noted. Back: No tenderness Neurologic: No gross sensory or motor deficits identified Integumentary: No rash or change in pigmentation Psychiatric: Alert and oriented, appropriate mood and affect Limitations: no limitations Course Vital Signs 09/01/20 15:09 Temperature 98.7 F Pulse Rate 104 H Respiratory 20 Rate Blood Pressure 117/77 O2 Sat by Pulse 99 Oximetry Medical Decision Making - Medical Decision Making The patient was seen and examined. All diagnostics are reviewed. An IV is established. She is hydrated in receives Toradol 15 mg IV as well as 4 mg of Zofran IV. The white blood cell count is slightly elevated. There is an equivocal urinary tract infection. Due to her history of previous pyeloneph ritis she is agreeable with antibiotic treatment. The pelvic ultrasound shows evidence of fluid in the cul-de-sac as well as bilateral ovarian cysts. It is felt as though her symptoms are consistent with a ruptured ovarian cyst. Symptomatic treatment will be prescribed. It is felt as though she stable for discharge. Return parameters are discussed. - Lab Data Result diagrams: 09/01/20 15:48 09/01/20 15:48 Lab Results 09/01/20 09/01/20 09/01/20 Range/Units 15:48 15:48 15:48 WBC 15.4 H (3.8-10.6) k/uL RBC 4.81 (3.80-5.40) m/uL Hgb 15.1 (11.4-16.0) gm/dL Hct 43.8 (34.0-46.0) % MCV 91.1 (80.0-100.0) fL MCH 31.3 (25.0-35.0) pg MCHC 34.4 (31.0-37.0) g/dL RDW 11.3 L (11.5-15.5) % Plt Count 295 (150-450) k/uL MPV 6.7 Neutrophils % 90 % Lymphocytes % 6 % Monocytes % 3 % Eosinophils % 1 % Basophils % 0 % Neutrophils # 13.9 H (1.3-7.7) k/uL Lymphocytes # 0.9 L (1.0-4.8) k/uL Monocytes # 0.4 (0-1.0) k/uL Eosinophils # 0.1 (0-0.7) k/uL Basophils # 0.0 (0-0.2) k/uL PT 9.6 (9.0-12.0) sec INR 0.9 (<1.2) APTT 20.1 L (22.0-30.0) sec Sodium (137-145) mmol/L Potassium (3.5-5.1) mmol/L Chloride (98-107) mmol/L Carbon Dioxide (22-30) mmol/L Anion Gap mmol/L BUN (7-17) mg/dL Creatinine (0.52-1.04) mg/dL Est GFR (CKD-EPI)AfAm (>60 ml/min/1.73 sqM) Est GFR (CKD-EPI)NonAf (>60 ml/min/1.73 sqM) Glucose (74-99) mg/dL Calcium (8.4-10.2) mg/dL Total Bilirubin (0.2-1.3) mg/dL AST (14-36) U/L ALT (4-34) U/L Alkaline Phosphatase (38-126) U/L Total Protein (6.3-8.2) g/dL Albumin (3.5-5.0) g/dL Lipase (23-300) U/L Urine Color Yellow Urine Appearance Clear (Clear) Urine pH 6.5 (5.0-8.0) Ur Specific [place] 1.020 (1.001-1.035) Urine Protein Negative (Negative) Urine Glucose (UA) Negative (Negative) Urine Ketones Negative (Negative) Urine Blood Negative (Negative) Urine Nitrite Negative (Negative) Urine Bilirubin Negative (Negative) Urine Urobilinogen <2.0 (<2.0) mg/dL Ur Leukocyte Esterase Small H (Negative) Urine RBC 2 (0-5) /hpf Urine WBC 5 (0-5) /hpf Ur Squamous Epith Cells 4 (0-4) /hpf Urine Mucus Rare H (None) /hpf Urine HCG, Qual (Not Detectd) 09/01/20 09/01/20 Range/Units 15:48 15:48 WBC (3.8-10.6) k/uL RBC (3.80-5.40) m/uL Hgb (11.4-16.0) gm/dL Hct (34.0-46.0) % MCV (80.0-100.0) fL MCH (25.0-35.0) pg MCHC (31.0-37.0) g/dL RDW (11.5-15.5) % Plt Count (150-450) k/uL MPV Neutrophils % % Lymphocytes % % Monocytes % % Eosinophils % % Basophils % % Neutrophils # (1.3-7.7) k/uL Lymphocytes # (1.0-4.8) k/uL Monocytes # (0-1.0) k/uL Eosinophils # (0-0.7) k/uL Basophils # (0-0.2) k/uL PT (9.0-12.0) sec INR (<1.2) APTT (22.0-30.0) sec Sodium 137 (137-145) mmol/L Potassium 4.0 (3.5-5.1) mmol/L Chloride 101 (98-107) mmol/L Carbon Dioxide 27 (22-30) mmol/L Anion Gap 9 mmol/L BUN 11 (7-17) mg/dL Creatinine 0.67 (0.52-1.04) mg/dL Est GFR (CKD-EPI)AfAm >90 (>60 ml/min/1.73 sqM) Est GFR (CKD-EPI)NonAf >90 (>60 ml/min/1.73 sqM) Glucose 95 (74-99) mg/dL Calcium 9.5 (8.4-10.2) mg/dL Total Bilirubin 0.6 (0.2-1.3) mg/dL AST 55 H (14-36) U/L ALT 52 H (4-34) U/L Alkaline Phosphatase 56 (38-126) U/L Total Protein 7.5 (6.3-8.2) g/dL Albumin 4.8 (3.5-5.0) g/dL Lipase 50 (23-300) U/L Urine Color Urine Appearance (Clear) Urine pH (5.0-8.0) Ur Specific [place] (1.001-1.035) Urine Protein (Negative) Urine Glucose (UA) (Negative) Urine Ketones (Negative) Urine Blood (Negative) Urine Nitrite (Negative) Urine Bilirubin (Negative) Urine Urobilinogen (<2.0) mg/dL Ur Leukocyte Esterase (Negative) Urine RBC (0-5) /hpf Urine WBC (0-5) /hpf Ur Squamous Epith Cells (0-4) /hpf Urine Mucus (None) /hpf Urine HCG, Qual Not Detected (Not Detectd) Disposition Clinical Impression: Pelvic pain, Nausea, Ovarian cyst, Urinary tract infection, Leukocytosis Disposition: HOME SELF-CARE Condition: Good Instructions (If sedation given, give patient instructions): Pelvic Pain in Women (ED), Ovarian Cyst (ED), Urinary Tract Infection in Women (ED) Prescriptions: Nitrofurantoin Monohyd/M-Cryst [Macrobid] 100 mg PO Q12HR #14 cap traMADol HCl [Ultram] 50 - 100 mg PO Q6H PRN #15 tab PRN Reason: Pain Ondansetron [Zofran] 8 mg PO Q8HR PRN #12 tab PRN Reason: Nausea Is patient prescribed a controlled substance at d/c from ED?: Yes When asked, does pt state using other controlled substances?: No If prescribed controlled substance>3 days was MAPS reviewed?: Prescribed <3 Days Referrals: Beto Griffith Jr, [Primary Care Provider] - 1-2 days Time of Disposition: 17:19
[2020-09-01 16:15] LABS: Basophils % (A) 0 %; Eosinophils # (A) 0.1 k/uL (0-0.7); Eosinophils % (A) 1 %; HCT 43.8 % (34.0-46.0); HGB 15.1 gm/dL (11.4-16.0); Lymphocytes # (A) 0.9 k/uL (1.0-4.8); Lymphocytes % (A) 6 %; MCH 31.3 pg (25.0-35.0); MCHC 34.4 g/dL (31.0-37.0); MCV 91.1 fL (80.0-100.0); Mean Platelet Volume 6.7; Monocytes # (A) 0.4 k/uL (0-1.0); Monocytes % (A) 3 %; Neutrophils # (A) 13.9 k/uL (1.3-7.7); Neutrophils % (A) 90 %; Platelet Count 295 k/uL (150-450); RBC 4.81 m/uL (3.80-5.40); RDW 11.3 % (11.5-15.5); WBC 15.4 k/uL (3.8-10.6)
[2020-09-01 16:22] LABS: Appearance,Urine Clear (Clear); Bilirubin,Urine Negative (Negative); Blood,Urine Negative (Negative); Color,Urine Yellow; Glucose,Urine (UA) Negative (Negative); Ketones,Urine Negative (Negative); Leukocyte Esterase,Urine Small (Negative); Mucus,Urine Rare /hpf; Nitrite,Urine Negative (Negative); PH, Urine 6.5 (5.0-8.0); Protein,Urine Negative (Negative); RBC,Urine 2 /hpf (0-5); Squamous Epithelial Cell,Urine 4 /hpf (0-4); Urobilinogen,Urine <2.0 mg/dL (<2.0); WBC,Urine 5 /hpf (0-5)
[2020-09-01 16:24] LABS: ALT 52 U/L (4-34); AST 55 U/L (14-36); African American GFR (CKD) >90 (>60 ml/min/1.73 sqM); Albumin 4.8 g/dL (3.5-5.0); Alkaline Phosphatase 56 U/L (38-126); Anion Gap 9 mmol/L; Blood Urea Nitrogen 11 mg/dL (7-17); Calcium 9.5 mg/dL (8.4-10.2); Carbon Dioxide 27 mmol/L (22-30); Chloride 101 mmol/L (98-107); Glucose 95 mg/dL (74-99); Lipase 50 U/L (23-300); Non-African American GFR(CKD) >90 (>60 ml/min/1.73 sqM); Sodium 137 mmol/L (137-145); Total Bilirubin 0.6 mg/dL (0.2-1.3); Total Protein 7.5 g/dL (6.3-8.2)
[2020-09-01 16:38] LABS: INR 0.9 (<1.2); Partial Thromboplastin Time 20.1 sec (22.0-30.0); Prothrombin Time 9.6 sec (9.0-12.0)
--- NOTE | 2020-09-01 17:06 | US ---
EXAMINATION TYPE: US transvaginal DATE OF EXAM: 09/01/2020 COMPARISON: NONE CLINICAL HISTORY: pelvic pain. LLQ pain today; TECHNIQUE: Transvaginal (TV). Transvaginal sonographic images were medically necessary to better ass ess the following anatomy: ovaries Date of LMP: 08/06/2020 EXAM MEASUREMENTS: Uterus: 9.1 x 6.7 x 4.8 cm Endometrial Stripe: Measures up to 1.8 cm Right Ovary: 4.1 x 2.9 x 2.8 cm Left Ovary: 2.9 x 2.2 x 1.8 cm 1. Uterus: Anteverted wnl 2. Endometrium: Mildly thickened 3. Right Ovary: multiple follicles with largest as simple follicular cyst = 2.1 x 1.9 x 1.9cm. 4. Left Ovary: multiple small follicles Spectral, color and waveform Doppler imaging shows good arterial and venous flow within the ovaries ; there is no evidence for ovarian torsion. 5. Bilateral Adnexa: small amount of free fluid imaged lateral to right ovary. 6. Posterior cul-de-sac: Small to moderate mildly complex free fluid seen. Possible 1.7 x 1.1 x 1.1 c m cystic structure in the posterior cul-de-sac. IMPRESSION: Small to moderate free fluid, mildly complex in the posterior cul-de-sac. Also possible 1.7 cm cystic structure in the posterior cul-de-sac. 2.1 cm right ovarian cyst. No evidence of ovarian torsion. Findings are nonspecific and may relate to functional cysts. Recommend follow-up after 2-3 menstrual cycle to document resolution or stability.
== END 2020-09-01 17:35 | disposition home or self-care (01) ==
LOC: EC 15:07
DX: N39.0 Urinary tract infection, site not specified (principal); N83.201 Unspecified ovarian cyst, right side; D72.829 Elevated white blood cell count, unspecified; N83.202 Unspecified ovarian cyst, left side
CPT/HCPCS: 36415; 80053; 83690; 85025; 85610; 85730; 81001; 81025; 93975; 76830; 99284; 96374; 96375; 96361 ×2; J2405; J1885

== ENCOUNTER 2021-11-15 06:05 | Inpatient (IN) | payer OTHER ==
[2021-11-15] MEDS ORDERED: OXYTOCIN 10 UNIT/ML 1 ML VIAL IM PRN (06:13)
[2021-11-15] MEDS ORDERED: METHYLERGONOVINE 0.2 MG/ML 1 ML AMP IM PRN (06:13)
[2021-11-15] MEDS ORDERED: TERBUTALINE 1 MG/ML VIAL SQ PRN (06:13)
[2021-11-15] MEDS ORDERED: CARBOPROST TROMETHAMINE 250 MCG/ML 1 ML AMP IM PRN (06:13)
[2021-11-15] MEDS ORDERED: LIDOCAINE 1% (PF) 10 MG/ML (30 ML SDV) SQ PRN (06:13)
[2021-11-15] MEDS ORDERED: OXYTOCIN 30 UNITS/500 ML NS 30 UNIT in SALINE 1 500ML.BAG IV SCH ×2 (06:15→13:45)
[2021-11-15] MEDS ORDERED: PENICILLIN G POTASSIUM 5,000,000 UNIT in DEXTROSE 5% IN WATER 100 ML IVPB ONE ×2 (06:30)
[2021-11-15] MEDS: LACTATED RINGERS 1,000 ML IV SCH ×2 (06:35→11:30)
[2021-11-15 06:56] LABS: Basophils % (A) 0 %; Eosinophils # (A) 0.1 k/uL (0-0.7); Eosinophils % (A) 1 %; HCT 40.2 % (34.0-46.0); HGB 13.2 gm/dL (11.4-16.0); Lymphocytes # (A) 1.7 k/uL (1.0-4.8); Lymphocytes % (A) 20 %; MCH 30.7 pg (25.0-35.0); MCHC 32.9 g/dL (31.0-37.0); MCV 93.4 fL (80.0-100.0); Mean Platelet Volume 7.7; Monocytes # (A) 0.4 k/uL (0-1.0); Monocytes % (A) 5 %; Neutrophils # (A) 5.7 k/uL (1.3-7.7); Neutrophils % (A) 71 %; Platelet Count 249 k/uL (150-450); RDW 13.1 % (11.5-15.5); WBC 8.1 k/uL (3.8-10.6)
--- NOTE | 2021-11-15 08:23 | P.HPOB ---
History of Present Illness H&P Date: 11/15/21 Chief Complaint: Postdates This is a 36 year old 4 para 3003 woman with an estimated due date of 11/06/2021 based on 8 week ultrasound. She is admitted at 41-2/7 weeks' gestation for postdates induction of labor. Her has been complicated by the Coblator infection on early in . She has been followed with testing all of which has been reassuring. She is also known to be group B strep positive. Obstetric history significant for normal spontaneous vaginal delivery in 2009, 2012 and 2019. She had a mild shoulder dystocia of an 8 lbs. 5 oz. in 2019. Laboratory data: Blood type O+, antibody screen negative, rubella immune, VDRL nonreactive, hep Eva surface antigen negative, HIV negative, gonorrhea and clinic cultures negative, glucose tolerance testing within normal limits, group B strep positive. Review of Systems All systems: negative Past Medical History Past Medical History: No Reported History Additional Past Medical History / Comment(s): 3 History of Any Multi-Drug Resistant Organisms: None Reported Past Surgical History: No Surgical Hx Reported Past Anesthesia/Blood Transfusion Reactions: No Reported Reaction, Motion Sickness Past Psychological History: No Psychological Hx Reported Smoking Status: Never smoker Past Alcohol Use History: None Reported Past Drug Use History: None Reported - Past Family History Mother History Unknown: Yes Family Medical History: No Reported History Medications and Allergies Home Medications Medication Instructions Recorded Confirmed Type Pnv,Calcium 72/Iron/Folic Acid 1 each PO DAILY 09/16/19 11/15/21 History [ Plus Tablet] Allergies Allergy/AdvReac Type Severity Reaction Status Date / Time No Known Allergies Allergy Verified 09/01/20 15:11 Exam Vital Signs Temp Pulse Resp BP Pulse Ox 11/15/21 06:12 97.6 F 90 16 130/84 98 Intake and Output 11/14/21 11/15/21 11/15/21 22:59 06:59 14:59 Other: Weight 77.111 kg This is a pleasant and comfortable appearing, visibly gravid female. Targeted physical exam is performed. On pelvic examination the cervix is 3 cm dilated, 70% effaced and the vertex in the -3 station. Artificial rupture of membranes is undertaken and clear fluid is noted. heart tones are category 1 and she is irregularly cynthia. Results Result Diagrams: 11/15/21 06:20 Assessment and Plan (1) GBS (group B Streptococcus carrier), +RV culture, currently Current Visit: No Status: Acute Code(s): O99.820 - STREPTOCOCCUS B CARRIER STATE COMPLICATING SNOMED Code(s): 8811197731541 (2) Post-dates Current Visit: No Status: Acute Code(s): O48.0 - POST-TERM SNOMED Code(s): 03759582 (3) Advanced maternal age (AMA) in Current Visit: Yes Status: Acute Code(s): AUT8157 - SNOMED Code(s): 843912583 Plan: This is a 36-year-old 4 para 3003 woman admitted at 41-2/7 weeks' gestation for postdates induction of labor. She is group B strep positive however she and her are declining antibiotic prophylactic therapy. The potential risks of group B strep infection are reviewed and all questions were answered. They decline antibiotics. status is currently reassuring by external monitoring, category 1. Patient does have a history of a mild shoulder dystocia of an 8 lbs. 5 oz. with her previous delivery. I discussed with the patient and her as she is now postdates that she is at risk of another large with possible shoulder dystocia as well. Delivery staff will be on standby and prepared for this event. The infant has measured appropriately in the setting and my current estimated weight is greater than 8 pounds.
[2021-11-15] MEDS: PENICILLIN G POTASSIUM 2,500,000 UNIT in DEXTROSE 5% IN WATER 100 ML IVPB SCH ×4 (11:26→22:07)
[2021-11-15] MEDS ORDERED: ROPIVACAINE 100 MG, fentaNYL (PF). 200 MCG in SODIUM CHLORIDE 0.9% 76 ML EPIDURAL ONE (12:06)
[2021-11-15] MEDS ORDERED: ACETAMINOPHEN TAB 325 MG TAB PO PRN (13:43)
[2021-11-15] MEDS ORDERED: ZOLPIDEM 5 MG TAB PO PRN (13:43)
[2021-11-15] MEDS ORDERED: IBUPROFEN 600 MG TAB PO PRN (13:43)
[2021-11-15] MEDS ORDERED: diphenhydrAMINE 50 MG CAP PO PRN (13:43)
[2021-11-15] MEDS ORDERED: BENZOCAINE/MENTHOL SPRAY 1 GM/SPRAY AEROSOL TOPICAL PRN (13:43)
[2021-11-15] MEDS ORDERED: HYDROCORTISONE 2.5% RECTAL CREAM 30 GM TUBE RECTAL PRN (13:43)
[2021-11-15] MEDS ORDERED: SIMETHICONE 80 MG CHEWABLE PO PRN (13:43)
[2021-11-15] MEDS ORDERED: diphenhydrAMINE 50 MG/ML 1 ML VIAL IVP PRN ×2 (13:43)
[2021-11-15] MEDS ORDERED: LANOLIN CREAM 5 GM TUBE TOPICAL PRN (13:43)
[2021-11-15] MEDS ORDERED: diphenhydrAMINE 25 MG CAP PO PRN (13:43)
--- NOTE | 2021-11-15 13:43 | P.PROBDLV ---
Vaginal Delivery Note - . Vaginal Delivery Note: Findings: Female in the right occiput anterior position with Apgars of 9 at 1 minute and 9 at 5 minutes weighing 7 lbs. 4 oz. Intact, three-vessel cord placenta. No perineal lacerations. EBL 100 mL's. Delivery summary: This is a 36-year-old 4 para 3003 woman who was admitted at 41-2/7 weeks' gestation for postdates induction of labor. Following admission she underwent artificial rupture of membranes and clear fluid was noted. Pitocin induction of labor was initiated per protocol. When she reached 4 cm dilated she received an epidural anesthetic. She then rapidly progressed to complete cervical dilation. She had mild urge to push. heart tones were category 1 throughout her first stage of labor. When she had pushed to she was repositioned, prepped and draped in the Criselda position due to history of previous shoulder dystocia. With additional maternal effort the head delivered from the right occiput anterior position. The anterior followed by the posterior shoulders were rapidly and easily delivered without difficulty. The rest the infant was delivered onto the field. The nose and mouth were bulb suctioned and the was placed on the maternal abdomen. The cord was eventually clamped and cut after approximately 3 minutes. With gentle traction on the cord did become from the body of the placenta. The placenta was in the vagina and was easily grasped and removed intact. The patient rece ived Pitocin following the third stage of labor. The uterus was massaged and was firm well below the level of the umbilicus. The vagina and cervix were inspected and no lacerations were noted. The placenta was thoroughly inspected and was noted to be intact. EBL was approximately 100 mL's. Both mother and were doing well post delivery in the room.
[2021-11-15] MEDS: SENNOSIDES-DOCUSATE SODIUM 1 EACH TAB PO SCH (20:06)
[2021-11-16 06:31] LABS: Basophils # (A) 0.1 k/uL (0-0.2); Basophils % (A) 1 %; Eosinophils # (A) 0.1 k/uL (0-0.7); Eosinophils % (A) 1 %; HCT 35.3 % (34.0-46.0); HGB 11.5 gm/dL (11.4-16.0); Lymphocytes # (A) 1.8 k/uL (1.0-4.8); Lymphocytes % (A) 16 %; MCH 30.6 pg (25.0-35.0); MCHC 32.7 g/dL (31.0-37.0); MCV 93.5 fL (80.0-100.0); Mean Platelet Volume 8.4; Monocytes # (A) 0.5 k/uL (0-1.0); Monocytes % (A) 5 %; Neutrophils # (A) 8.7 k/uL (1.3-7.7); Neutrophils % (A) 78 %; Platelet Count 216 k/uL (150-450); RBC 3.77 m/uL (3.80-5.40); RDW 12.5 % (11.5-15.5); WBC 11.2 k/uL (3.8-10.6)
--- NOTE | 2021-11-16 08:17 | P.DS ---
Providers Date of admission: 11/15/21 06:05 Expected date of discharge: 11/16/21 Attending physician: Yuliana Jade Primary care physician: Stated None - Discharge Diagnosis(es) (1) GBS (group B Streptococcus carrier), +RV culture, currently Current Visit: No Status: Acute (2) Post-dates Current Visit: No Status: Acute (3) Advanced maternal age (AMA) in Current Visit: Yes Status: Acute (4) Normal spontaneous vaginal delivery Current Visit: No Status: Acute Hospital Course: This is a 4 now para 4 woman who was admitted at 41-2/7 weeks' gestation for postdates induction of labor. She was admitted and underwent artificial rupture of membranes and Pitocin induction of labor per protocol. She received an epidural anesthetic and had rapid progression to complete cervical dilation. She had approximately 20 minute second stage of labor to deliver a liveborn female over an intact perineum with Apgars of 9 at 1 minute and 9 at 5 minutes weighing 7 lbs. 4 oz. Please see delivery summary for details. The patient's course was unremarkable. By day #1 she was ambulating and voiding without difficulty. Her lochia was moderate. She was breast-feeding successfully. Her vital signs were stable and her blood work was within normal limits. She was therefore discharged home with routine instructions for care and follow-up. Procedures: Normal spontaneous vaginal delivery Patient Condition at Discharge: Good Plan - Discharge Summary New Discharge Prescriptions: No Action Pnv,Calcium 72/Iron/Folic Acid [ Plus Tablet] 1 each PO DAILY Discharge Medication List Pnv,Calcium 72/Iron/Folic Acid [ Plus Tablet] 1 each PO DAILY 09/16/19 [History] Follow up Appointment(s)/Referral(s): Yuliana Jade MD [STAFF PHYSICIAN] - 6 Weeks Activity/Diet/Wound Care/Special Instructions: Follow-up in the office in 6 weeks . Call with any concerning signs or symptoms including heavy vaginal bleeding, severe abdominal pain, fever greater than 101, swelling or redness of the lower extremities, foul vaginal discharge, or signs of depression. Nothing in the vagina for 6 weeks after delivery, specifically no intercourse. Discharge Disposition: HOME SELF-CARE
[2021-11-16] MEDS: SENNOSIDES-DOCUSATE SODIUM 1 EACH TAB PO SCH ×2 (09:05→19:43)
[2021-11-17 09:17] VITALS: BP 117/72; PULSE 84; RESP 56; TEMP 97.2
[2021-11-17] MEDS: SENNOSIDES-DOCUSATE SODIUM 1 EACH TAB PO SCH (10:58)
== END 2021-11-17 11:01 | disposition home or self-care (01) | DRG 807 ==
LOC: 4FBP 06:05
PROVIDERS: ADMIT Obstetrics & Gynecology; ATTEND Obstetrics & Gynecology
PROC: 10E0XZZ Delivery of Products of Conception, External Approach (ICD-10-PCS; principal; 2021-11-15)
PROC: 3E0R3NZ Introduction of Analgesics, Hypnotics, Sedatives into Spinal Canal, Percutaneous Approach (ICD-10-PCS; principal; 2021-11-15)
PROC: 00HU33Z Insertion of Infusion Device into Spinal Canal, Percutaneous Approach (ICD-10-PCS; principal; 2021-11-15)
PROC: 10907ZC Drainage of Amniotic Fluid, Therapeutic from Products of Conception, Via Natural or Artificial Opening (ICD-10-PCS; principal; 2021-11-15)
PROC: 3E033VJ Introduction of Other Hormone into Peripheral Vein, Percutaneous Approach (ICD-10-PCS; 2021-11-15)
DX: O48.0 Post-term pregnancy (principal); Z37.0 Single live birth; O99.824 Streptococcus B carrier state complicating childbirth; Z3A.41 41 weeks gestation of pregnancy; Z28.310 Unvaccinated for COVID-19
CPT/HCPCS: 85025; 86850; 86900; 86901

== ENCOUNTER 2023-05-09 12:26 | Emergency (ER) | payer OTHER ==
[2023-05-09 13:00] VITALS: RESP 18; TEMP 98.9
--- NOTE | 2023-05-09 13:35 | ED ---
GI Bleed HPI - General Chief complaint: GI Bleed Stated complaint: rectal bleeding Time Seen by Provider: 05/09/23 13:20 Source: patient, RN notes reviewed, old records reviewed Mode of arrival: ambulatory Limitations: no limitations - History of Present Illness Initial comments: This is a 38-year-old female to the emergency department today. Patient Dese for evaluation of blood in her stool. Patient states she has have history of hemorrhoids and has no current rectal pain. Patient states she has not had any diarrheal illnesses lately, no blood thinners he does have history of colonoscopy negative, patient did notice blood mixed with stool as well as on the tissue paper after going to the bathroom prior to arrival. MD complaint: blood on toilet paper, blood streaked stool -: hour(s) Radiation: none Quality: painless Consistency: intermittent, now resolved (One episode) Improves with: none Worsens with: none Context: hemorrhoids Associated Symptoms: denies other symptoms Treatments Prior to Arrival: none - Related Data Home Medications Medication Instructions Recorded Confirmed No Known Home Medications 05/09/23 05/09/23 Allergies Allergy/AdvReac Type Severity Reaction Status Date / Time No Known Allergies Allergy Verified 05/09/23 13:32 Review of Systems ROS Statement: Those systems with pertinent positive or pertinent negative responses have been documented in the HPI. ROS Other: All systems not noted in ROS Statement are negative. Past Medical History Past Medical History: No Reported History Additional Past Medical History / Comment(s): 3 History of Any Multi-Drug Resistant Organisms: None Reported Past Surgical History: No Surgical Hx Reported Past Anesthesia/Blood Transfusion Reactions: No Reported Reaction, Motion Sickness Past Psychological History: No Psychological Hx Reported Smoking Status: Never smoker Past Alcohol Use History: Occasional Past Drug Use History: None Reported - Past Family History Mother History Unknown: Yes Family Medical History: No Reported History General Exam Limitations: no limitations General appearance: alert, in no apparent distress Head exam: Present: atraumatic, normocephalic, normal inspection Eye exam: Present: normal appearance, PERRL, EOMI. Absent: scleral icterus, conjunctival injection, periorbital swelling ENT exam: Present: normal exam, mucous membranes moist Neck exam: Present: normal inspection. Absent: tenderness, meningismus, lymphadenopathy Respiratory exam: Present: normal lung sounds bilaterally. Absent: respiratory distress, wheezes, rales, rhonchi, stridor Cardiovascular Exam: Present: regular rate, normal rhythm, normal heart sounds. Absent: systolic murmur, diastolic murmur, rubs, gallop, clicks GI/Abdominal exam: Present: soft, normal bowel sounds. Absent: distended, tenderness, guarding, rebound, rigid Extremities exam: Present: normal inspection, full ROM, normal capillary refill. Absent: tenderness, pedal edema, joint swelling, calf tenderness Back exam: Present: normal inspection Neurological exam: Present: alert, oriented X3, CN II-XII intact Psychiatric exam: Present: normal affect, normal mood Skin exam: Present: warm, dry, intact, normal color. Absent: rash Course Vital Signs 05/09/23 05/09/23 05/09/23 12:53 13:30 14:00 Temperature 98.9 F Pulse Rate 77 Respiratory 18 18 18 Rate Blood Pressure 144/91 129/83 112/71 O2 Sat by Pulse 99 97 97 Oximetry 05/09/23 05/09/23 05/09/23 14:30 15:00 15:20 Temperature Pulse Rate 79 Respiratory 18 18 18 Rate Blood Pressure 122/84 107/66 O2 Sat by Pulse 98 97 99 Oximetry - Reevaluation(s) Reevaluation #4: 05/09/23 13:34 Was pt. sent in by a medical professional or institution ([facility], [facility], urgent care, hospital, or usp...) When possible be specific @ -no Did you speak to anyone other than the patient for history (EMS, parent, family, police, friend...)? What history was obtained from this source @ -no Did you review nursing and triage notes (agree or disagree)? Why? @ -agree Are old charts reviewed (outside hosp., previous admission, EMS record, old EKG, old radiological studies, urgent care reports/EKG's, usp records)? Report findings @ -yes Differential Diagnosis (chest pain, altered mental status, abdominal pain women, abdominal pain men, vaginal bleeding, weakness, fever, dyspnea, syncope, headache, dizziness, GI bleed, back pain, seizure, CVA, palpatations, mental health, musculoskeletal)? @ -prior EKG interpreted by me (3pts min.). @ -no X-rays interpreted by me (1pt min.). @ -no CT interpreted by me (1pt min.). @ -no U/S interpreted by me (1pt. min.). @ -no What testing was considered but not performed or refused? (CT, X-rays, U/S, labs)? Why? @ -none What meds were considered but not given or refused? Why? @ -none Did you discuss the management of the patient with other professionals (professionals i.e. Dr., PA, [employer], lab, RT, psych nurse, licensed master social worker, verse writer, teacher, division officer weapons department, behavioral health case manager)? Give summary @ -no Was smoking cessation discussed for >3mins.? @ -no Was critical care preformed (if so, how long)? @ -no Were there social determinants of health that impacted care today? How? (Homelessness, low income, unemployed, alcoholism, drug addiction, transportation, low edu. Level, literacy, decrease access to med. care, residential, rehab)? @ -none Was there de-escalation of care discussed even if they declined (Discuss DNR or withdrawal of care, Hospice)? DNR status @ -no What co-morbidities impacted this encounter? (DM, HTN, Smoking, COPD, CAD, Cancer, CVA, ARF, Chemo, Hep., AIDS, mental health diagnosis, sleep apnea, morbid obesity)? @ -none Was patient admitted / discharged? Hospital course, mention meds given and route, prescriptions, significant lab abnormalities, going to OR and other pertinent info. @ - 38 female to the emergency department for evaluation of blood streak stool with history of hemorrhoids. No significant hemorrhoids noticed on exam. No active bleeding throughout ER stay hemoglobin vital signs are normal patient can be discharged home Discharge Undiagnosed new problem with uncertain prognosis? @ -no Drug Therapy requiring intensive monitoring for toxicity (Heparin, Nitro, Insulin, Cardizem)? @ -no Were any procedures done? @ -no Diagnosis/symptom? @ -Blood in stool, GI bleed Acute, or Chronic, or Acute on Chronic? @ -Acute Uncomplicated (without systemic symptoms) or Complicated (systemic symptoms)? @ -Complicated Side effects of treatment? @ -no Exacerbation, Progression, or Severe Exacerbation? @ -exacerbation Poses a threat to life or bodily function? How? (Chest pain, USA, ND, pneumonia, PE, COPD, DKA, ARF, appy, cholecystitis, CVA, Diverticulitis, Homicidal, Suicidal, threat to staff... and all critical care pts) @ -no Medical Decision Making - Medical Decision Making 38 female to the emergency department for evaluation of blood streak stool with history of hemorrhoids. No significant hemorrhoids noticed on exam. No active bleeding throughout ER stay hemoglobin vital signs are normal patient can be discharged home - Lab Data Result diagrams: 05/09/23 13:29 05/09/23 13:29 Lab Results 05/09/23 05/09/23 05/09/23 Range/Units 13:29 13:29 13:29 WBC 7.6 (3.8-10.6) k/uL RBC 4.93 (3.80-5.40) m/uL Hgb 15.7 (11.4-16.0) gm/dL Hct 44.9 (34.0-46.0) % MCV 91.2 (80.0-100.0) fL MCH 31.8 (25.0-35.0) pg MCHC 34.9 (31.0-37.0) g/dL RDW 11.2 L (11.5-15.5) % Plt Count 279 (150-450) k/uL MPV 7.1 Neutrophils % 66 % Lymphocytes % 27 % Monocytes % 4 % Eosinophils % 2 % Basophils % 1 % Neutrophils # 5.0 (1.3-7.7) k/uL Lymphocytes # 2.1 (1.0-4.8) k/uL Monocytes # 0.3 (0-1.0) k/uL Eosinophils # 0.1 (0-0.7) k/uL Basophils # 0.0 (0-0.2) k/uL PT 9.9 L (10.0-12.5) sec INR 0.9 (<1.2) APTT 22.8 (22.0-30.0) sec Sodium 139 (137-145) mmol/L Potassium 4.1 (3.5-5.1) mmol/L Chloride 104 (98-107) mmol/L Carbon Dioxide 24 (22-30) mmol/L Anion Gap 11 mmol/L BUN 15 (7-17) mg/dL Creatinine 0.65 (0.52-1.04) mg/dL Est GFR (CKD-EPI)AfAm >90 (>60 ml/min/1.73 sqM) Est GFR (CKD-EPI)NonAf >90 (>60 ml/min/1.73 sqM) Glucose 89 (74-99) mg/dL Calcium 9.5 (8.4-10.2) mg/dL Magnesium 2.1 (1.6-2.3) mg/dL Total Bilirubin 0.6 (0.2-1.3) mg/dL AST 21 (14-36) U/L ALT 17 (4-34) U/L Alkaline Phosphatase 64 (38-126) U/L Troponin I (0.000-0.034) ng/mL Total Protein 7.7 (6.3-8.2) g/dL Albumin 4.9 (3.5-5.0) g/dL 05/09/23 Range/Units 13:29 WBC (3.8-10.6) k/uL RBC (3.80-5.40) m/uL Hgb (11.4-16.0) gm/dL Hct (34.0-46.0) % MCV (80.0-100.0) fL MCH (25.0-35.0) pg MCHC (31.0-37.0) g/dL RDW (11.5-15.5) % Plt Count (150-450) k/uL MPV Neutrophils % % Lymphocytes % % Monocytes % % Eosinophils % % Basophils % % Neutrophils # (1.3-7.7) k/uL Lymphocytes # (1.0-4.8) k/uL Monocytes # (0-1.0) k/uL Eosinophils # (0-0.7) k/uL Basophils # (0-0.2) k/uL PT (10.0-12.5) sec INR (<1.2) APTT (22.0-30.0) sec Sodium (137-145) mmol/L Potassium (3.5-5.1) mmol/L Chloride (98-107) mmol/L Carbon Dioxide (22-30) mmol/L Anion Gap mmol/L BUN (7-17) mg/dL Creatinine (0.52-1.04) mg/dL Est GFR (CKD-EPI)AfAm (>60 ml/min/1.73 sqM) Est GFR (CKD-EPI)NonAf (>60 ml/min/1.73 sqM) Glucose (74-99) mg/dL Calcium (8.4-10.2) mg/dL Magnesium (1.6-2.3) mg/dL Total Bilirubin (0.2-1.3) mg/dL AST (14-36) U/L ALT (4-34) U/L Alkaline Phosphatase (38-126) U/L Troponin I <0.012 (0.000-0.034) ng/mL Total Protein (6.3-8.2) g/dL Albumin (3.5-5.0) g/dL Disposition Clinical Impression: Lower gastrointestinal hemorrhage Disposition: HOME SELF-CARE Condition: Good Instructions (If sedation given, give patient instructions): Gastrointestinal Bleeding (ED) Is patient prescribed a controlled substance at d/c from ED?: No Referrals: Beto Griffith Jr, [Primary Care Provider] - 1-2 days Yaw Cole MD [Medical Doctor] - 1-2 days
[2023-05-09 13:39] LABS: Basophils % (A) 1 %; Eosinophils # (A) 0.1 k/uL (0-0.7); Eosinophils % (A) 2 %; HCT 44.9 % (34.0-46.0); HGB 15.7 gm/dL (11.4-16.0); Lymphocytes # (A) 2.1 k/uL (1.0-4.8); Lymphocytes % (A) 27 %; MCH 31.8 pg (25.0-35.0); MCHC 34.9 g/dL (31.0-37.0); MCV 91.2 fL (80.0-100.0); Mean Platelet Volume 7.1; Monocytes # (A) 0.3 k/uL (0-1.0); Monocytes % (A) 4 %; Neutrophils % (A) 66 %; Platelet Count 279 k/uL (150-450); RBC 4.93 m/uL (3.80-5.40); RDW 11.2 % (11.5-15.5); WBC 7.6 k/uL (3.8-10.6)
[2023-05-09 13:49] LABS: ALT 17 U/L (4-34); AST 21 U/L (14-36); African American GFR (CKD) >90 (>60 ml/min/1.73 sqM); Albumin 4.9 g/dL (3.5-5.0); Alkaline Phosphatase 64 U/L (38-126); Anion Gap 11 mmol/L; Blood Urea Nitrogen 15 mg/dL (7-17); Calcium 9.5 mg/dL (8.4-10.2); Carbon Dioxide 24 mmol/L (22-30); Chloride 104 mmol/L (98-107); Glucose 89 mg/dL (74-99); Magnesium 2.1 mg/dL (1.6-2.3); Non-African American GFR(CKD) >90 (>60 ml/min/1.73 sqM); Potassium 4.1 mmol/L (3.5-5.1); Sodium 139 mmol/L (137-145); Total Bilirubin 0.6 mg/dL (0.2-1.3); Total Protein 7.7 g/dL (6.3-8.2)
[2023-05-09 13:52] LABS: INR 0.9 (<1.2); Partial Thromboplastin Time 22.8 sec (22.0-30.0); Prothrombin Time 9.9 sec (10.0-12.5)
[2023-05-09 15:16] VITALS: BP 107/66
[2023-05-09 15:37] VITALS: PULSE 79
== END 2023-05-09 15:22 | disposition home or self-care (01) ==
LOC: EC 12:26
DX: K92.2 Gastrointestinal hemorrhage, unspecified (principal)
CPT/HCPCS: 36415; 80053; 83735; 84484; 85025; 85610; 85730; 99285

== ENCOUNTER 2023-06-03 11:29 | Day surgery (SDC) | payer OTHER ==
[2023-05-28 11:19] VITALS: BMI 26.2
[~2023-06-03 11:29] MED LIST: LACTATED RINGERS 1,000 ML IV SCH
[2023-06-03 12:05] VITALS: RESP 16; TEMP 98.2
[2023-06-03] MEDS ORDERED: PROPOFOL 10 MG/ML 20 ML VIAL IV ONE (12:24)
--- NOTE | 2023-06-03 12:40 | P.PCN ---
Date of Procedure: 06/03/23 Procedure(s) Performed: PREOPERATIVE DIAGNOSIS: Rectal bleeding, diverticulitis POSTOPERATIVE DIAGNOSIS: Diverticulosis, small internal and external hemorrhoids PROCEDURE: Colonoscopy with anoscopy ANESTHESIA: MAC SURGEON: Yaw Cole M.D. SPECIMENS: None ENDOSCOPIC PROCEDURE: The patient was placed on the endoscopy table in the left decubitus position. The Olympus colonoscope was inserted into the anus and passed under direct visualization to the base of the cecum. The appendiceal orifice was visualized. From that point the scope was slowly withdrawn inspecting all surfaces carefully. There were no neoplastic inflammatory or polypoid lesions throughout the cecum, ascending, transverse, descending, sigmoid and rectum. There was mild to moderate left-sided diverticulosis noted.. Anal evaluation revealed small hemorrhoidal skin tags. The anal scope was utilized. Very small internal and external hemorrhoids were noted. None of these seemed to be the source of recent bleeding. No hemorrhoidal banding took place. The patient was taken to the recovery room in stable condition per a nesthesia guidelines. RECOMMENDATIONS: Resume diet. Increase fiber.
[2023-06-03 13:06] VITALS: BP 109/72; PULSE 53
== END 2023-06-03 13:16 | disposition home or self-care (01) ==
LOC: ORWHC2ENDO 11:29
PROVIDERS: ATTEND Surgery
DX: K62.5 Hemorrhage of anus and rectum (principal); K57.30 Diverticulosis of large intestine without perforation or abscess without bleeding; K64.4 Residual hemorrhoidal skin tags; K64.8 Other hemorrhoids; Z98.890 Other specified postprocedural states
CPT/HCPCS: 81025; 45378; J2704

== ENCOUNTER 2024-11-07 13:26 | Emergency (ER) | payer OTHER ==
[2024-11-07 13:40] VITALS: BP 123/78; TEMP 99.6
--- NOTE | 2024-11-07 14:50 | XR ---
EXAMINATION TYPE: XR knee complete LT DATE OF EXAM: 11/07/2024 2:45 PM COMPARISON: None CLINICAL INDICATION: Female, 39 years old with history of pain; PHH, pain TECHNIQUE: XR knee complete LT 3 views submitted. FINDINGS: No evidence of any acute osseous pathology, soft tissue swelling, or joint effusion is no raven. IMPRESSION: 1. No acute osseous pathology. 2. Mild tricompartmental osteoarthritic changes. [facility], , 11/07/2024 2:48 PM
[2024-11-07 14:55] LABS: Basophils # (A) 0.03 10*3/uL (0.00-0.10); Basophils % (A) 0.3 %; Eosinophils # (A) 0.16 10*3/uL (0.04-0.35); Eosinophils % (A) 1.7 %; HCT 37.7 % (37.2-46.3); HGB 13.5 g/dL (12.0-15.0); Lymphocytes # (A) 2.05 10*3/uL (0.90-5.00); Lymphocytes % (A) 21.2 %; MCH 31.8 pg (27.0-32.0); MCHC 35.8 g/dL (32.0-37.0); MCV 88.9 fL (80.0-97.0); Mean Platelet Volume 8.8 fL (9.5-12.2); Monocytes # (A) 0.48 10*3/uL (0.20-1.00); Neutrophils # (A) 6.88 10*3/uL (1.80-7.70); Neutrophils % (A) 71.2 %; Platelet Count 270 10*3/uL (140-440); RBC 4.24 10*6/uL (4.10-5.20); RDW 11.9 % (11.5-14.5); WBC 9.66 10*3/uL (4.50-10.00)
[2024-11-07 15:09] LABS: ALT 20 U/L (4-34); AST 19 U/L (14-36); African American GFR (CKD) >90 (>60 ml/min/1.73 sqM); Albumin 4.2 g/dL (3.5-5.0); Alkaline Phosphatase 48 U/L (38-126); Anion Gap 9 mmol/L; Blood Urea Nitrogen 7 mg/dL (7-17); Calcium 9.4 mg/dL (8.4-10.2); Carbon Dioxide 23 mmol/L (22-30); Chloride 102 mmol/L (98-107); Glucose 87 mg/dL (74-99); Non-African American GFR(CKD) >90 (>60 ml/min/1.73 sqM); Potassium 3.8 mmol/L (3.5-5.1); Sodium 134 mmol/L (137-145); Total Bilirubin 0.4 mg/dL (0.2-1.3); Total Protein 6.8 g/dL (6.3-8.2)
--- NOTE | 2024-11-07 16:06 | US ---
EXAMINATION TYPE: Transabdominal DATE OF EXAM: 11/07/2024 3:49 PM COMPARISON: NONE CLINICAL INDICATION: Female, 39 years old with history of new , intermittent lower abd pain; Left pelvic cramping TECHNIQUE: Transabdominal (TA) with grayscale and color Doppler imaging including first trimester pre gnancy. FINDINGS: EXAM MEASUREMENTS: GESTATIONAL AGE / DATING Physician Established: Not yet established Dates by LMP: (8 weeks/5 days) EDC: 06/14/25 Dates by First Scan: No previous this is first scan Dates by Current Scan for: (9 weeks/3 days) EDC: 06/09/25 MATERNAL ANATOMY Uterus: 13.7 x 5.7 x 8.7cm Right Ovary: 2.8 x 2.2 x 2.0cm Left Ovary: 3.7 x 3.8 x 2.8cm Post CDS / Adnexa: wnl Presence of free fluid: no Presence of corpus luteal cyst: yes, anechoic lesion left ovary = 3.0 x 2.0 x 2.4cm GESTATION / SURVEY CRL: 2.6cm (9 weeks/3 days) Gestational Sac morphology: Normal Yolk Sac (normal less than 6mm): 0.4cm Cardiac Activity/Heart Rate: 169 bpm Rhythm: Normal IUP: Viable IUP Date of LMP: 09/07/24 Beta HcG (if available): Not available at this time IMPRESSION: 1. Single live intrauterine with calculated ultrasound age of 9 weeks 3 days by crown rump length with an estimated date of delivery of 06/09/2025 [facility], , 11/07/2024 4:04 PM
[2024-11-07 16:10] LABS: Appearance,Urine Clear (Clear); Bacteria,Urine Occasional /hpf; Bilirubin,Urine Negative (Negative); Blood,Urine Negative (Negative); Color,Urine Colorless; Glucose,Urine (UA) Negative (Negative); Ketones,Urine Negative (Negative); Leukocyte Esterase,Urine Small (Negative); Nitrite,Urine Negative (Negative); PH, Urine 6.5 (5.0-8.0); Protein,Urine Negative (Negative); RBC,Urine 1 /hpf (0-5); Specific Gravity,Urine 1.006 (1.001-1.035); Squamous Epithelial Cell,Urine 3 /hpf (0-4); Urobilinogen,Urine <2.0 mg/dL (<2.0); WBC,Urine 7 /hpf (0-5)
--- NOTE | 2024-11-07 16:50 | ED ---
General Adult HPI - General Chief complaint: Extremity Injury, Lower Stated complaint: L knee pain Time Seen by Provider: 11/07/24 14:20 Source: patient, RN notes reviewed, old records reviewed Mode of arrival: ambulatory Limitations: no limitations - History of Present Illness Initial comments: Patient is a 39-year-old female presents emergency department complaining of primarily left knee pain. States last night she was standing from a seated position on the floor and planted her left knee. Milo some pain in her left knee as she stood up. Since that time it is seems more swollen and painful with full extension and full flexion. He has been able to ambulate on it. He is limping some. No obvious injury. Patient states she is also but is uncertain how far along she is. Denies any vaginal discharge or bleeding but does endorse occasional intermittent abdominal discomfort. Has not yet seen her FI[facility]OMER. Presents for further evaluation at this time. Denies any chest pain or shortness of breath. Denies any other obvious injuries. Is on no medications. No significant past medical history.Patient denies any vaginal bleeding or discharge. Patient is . - Related Data Home Medications Medication Instructions Recorded Confirmed No Known Home Medications 05/09/23 06/03/23 Allergies Allergy/AdvReac Type Severity Reaction Status Date / Time No Known Allergies Allergy Verified 11/07/24 13:40 Review of Systems ROS Statement: Those systems with pertinent positive or pertinent negative responses have been documented in the HPI. Review of Systems: CONST: Denies fever EYES: Denies blurry vision ENT: Denies nasal congestion C/V: Denies Chest pain RESP: Denies shortness of breath GI: Denies abdominal pain : Denies dysuria SKIN: Denies rash. MSK: Endorses left knee pain NEURO: Denies headache ROS Other: All systems not noted in ROS Statement are negative. Past Medical History Past Medical History: No Reported History Additional Past Medical History / Comment(s): RECTAL BLEEDING History of Any Multi-Drug Resistant Organisms: None Reported Past Surgical History: Breast Surgery Additional Past Surgical History / Comment(s): COLONOSCOPY, BREAST AUGMENTATION Past Anesthesia/Blood Transfusion Reactions: Motion Sickness, Postoperative Nausea & Vomiting (PONV) Past Psychological History: No Psychological Hx Reported Smoking Status: Never smoker Past Alcohol Use History: None Reported Past Drug Use History: None Reported - Past Family History Mother History Unknown: Yes Family Medical History: No Reported History General Exam - General Exam Comments Initial Comments: General: Appears in no acute distress. HEAD: Normal with no signs of head trauma. EYES: EOMI ENT: Hearing grossly intact, normal oropharynx. RESPIRATORY: Clear breath sounds bilaterally. No wheezes, rales, or rhonchi. C/V: Regular rate and rhythm. S1 and S2 auscultated, no edema, peripheral pulses 2+ and intact throughout ABD: Abd is soft, nontender, nondistended EXT: Reduced range of motion with full extension and full flexion of the left knee secondary to pain. Can hold the knee in extension against gravity. No obvious increased pain with varus or valgus stress. No obvious deformity. General tenderness to palpation. States the pain is mostly on the inside of the knee. Neurovascular intact throughout the left lower extremity. No other tenderness to palpation along the left lower extremity. SKIN: No rashes or lesions observed on exposed skin. NEURO: Alert and orient x 4. Limitations: no limitations Course Vital Signs 11/07/24 11/07/24 13:38 17:15 Temperature 99.6 F Pulse Rate 83 86 Respiratory 20 18 Rate Blood Pressure 123/78 O2 Sat by Pulse 99 99 Oximetry Medical Decision Making - Medical Decision Making Was pt. sent in by a medical professional or institution (, PA, [employer], urgent care, hospital, or alf...) When possible be specific @ -No Did you speak to anyone other than the patient for history (EMS, parent, family, police, friend...)? What history was obtained from this source @ -No Did you review nursing and triage notes (agree or disagree)? Why? @ -I reviewed and agree with nursing and triage notes Were old charts reviewed (outside hosp., previous admission, EMS record, old EKG, old radiological studies, urgent care reports/EKG's, alf records)? Report findings @ -No old charts were reviewed Differential Diagnosis (chest pain, altered mental status, abdominal pain women, abdominal pain men, vaginal bleeding, weakness, fever, dyspnea, syncope, headache, dizziness, GI bleed, back pain, seizure, CVA, palpatations, mental health, musculoskeletal)? @ -, left knee fracture, left knee sprain, ligament injury. This list is not all inclusive. EKG interpreted by me (3pts min.). @ -None done X-rays interpreted by me (1pt min.). @ -Left knee x-ray negative for any obvious acute traumatic injury CT interpreted by me (1pt min.). @ -None done U/S interpreted by me (1pt. min.). @ - ultrasound remarkable for definitive intrauterine dating at 9 weeks and 3 days. Heart rate is 169 bpm What testing was considered but not performed or refused? (CT, X-rays, U/S, labs)? Why? @ -None What meds were considered but not given or refused? Why? @ -None Did you discuss the management of the patient with other professionals (professionals i.e. , PA, [employer], lab, RT, psych nurse, social security benefits interviewer, watcher automat [employer] goods, teacher, landing signal officer, disease case manager rn)? Give summary @ -No Was smoking cessation discussed for >3mins.? @ -No Was critical care preformed (if so, how long)? @ -No Were there social determinants of health that impacted care today? How? (Homelessness, low income, unemployed, alcoholism, drug addiction, transportation, low edu. Level, literacy, decrease access to med. care, alf, rehab)? @ -No Was there de-escalation of care discussed even if they declined (Discuss DNR or withdrawal of care, Hospice)? DNR status @ -No What co-morbidities impacted this encounter? (DM, HTN, Smoking, COPD, CAD, Cancer, CVA, ARF, Chemo, Hep., AIDS, mental health diagnosis, sleep apnea, morbid obesity)? @ -None Was patient admitted / discharged? Hospital course, mention meds given and route, prescriptions, significant lab abnormalities, going to OR and other pertinent info. @ -Patient presents emergency department complaining of left knee injury that is atraumatic as well as new onset with intermittent abdominal discomfort. We will obtain new onset labs as well as ultrasound and additional left knee x-ray. She was in agreement this plan. Declines analgesia medications. X-ray negative for any obvious acute traumatic injury. Ultrasound showed d efinitive IUP with a adequate heart rate of 169 bpm as well as dating at 9 weeks and 3 days. Patient's laboratory studies otherwise are within acceptable limits. Up to the patient. She expressed understanding. Recommend she follow-up with [facility]. She was in agreement this plan. Strict return precautions discussed. She will be given crutches as well as a knee immobilizer for her left knee. Recommended follow-up with orthopedics if symptoms do not improve as I am concerned for possible internal derangement of the knee. She was in agreement with this plan. I instructed the patient to follow up with their PCP in the next 1-3 days. I explained that the patient should return to the emergency department if they experience any worsening symptoms. Strict return precautions were discussed with the patient. The patient expressed understanding of these instructions. I answered all questions that the patient had. The patient was discharged home in good condition with their prescriptions and follow up information. Undiagnosed new problem with uncertain prognosis? @ -No Drug Therapy requiring intensive monitoring for toxicity (Heparin, Nitro, Insulin, Cardizem)? @ -No Were any procedures done? @ -No Diagnosis/symptom? @ -Left knee sprain, Acute, or Chronic, or Acute on Chronic? @ -Acute Uncomplicated (without systemic symptoms) or Complicated (systemic symptoms)? @ -Uncomplicated Side effects of treatment? @ -No Exacerbation, Progression, or Severe Exacerbation? @ -No Poses a threat to life or bodily function? How? (Chest pain, [place], [place], pneumonia, PE, COPD, DKA, ARF, appy, cholecystitis, CVA, Diverticulitis, Homicidal, Suicidal, threat to staff... and all critical care pts) @ -Unlikely at this time - Lab Data Result diagrams: 11/07/24 14:44 11/07/24 14:44 Lab Results 11/07/24 11/07/24 11/07/24 Range/Units 14:44 14:44 14:44 WBC 9.66 (4.50-10.00) 10*3/uL RBC 4.24 (4.10-5.20) 10*6/uL Hgb 13.5 (12.0-15.0) g/dL Hct 37.7 (37.2-46.3) % MCV 88.9 (80.0-97.0) fL MCH 31.8 (27.0-32.0) pg MCHC 35.8 (32.0-37.0) g/dL Plt Count 270 (140-440) 10*3/uL MPV 8.8 L (9.5-12.2) fL Immature Gran % (Auto) 0.6 % Neutrophils % 71.2 % Lymphocytes % 21.2 % Monocytes % 5.0 % Eosinophils % 1.7 % Basophils % 0.3 % Immature Gran # 0.06 H (0.00-0.04) 10*3/uL Neutrophils # 6.88 (1.80-7.70) 10*3/uL Lymphocytes # 2.05 (0.90-5.00) 10*3/uL Monocytes # 0.48 (0.20-1.00) 10*3/uL Eosinophils # 0.16 (0.04-0.35) 10*3/uL Basophils # 0.03 (0.00-0.10) 10*3/uL Sodium 134 L (137-145) mmol/L Potassium 3.8 (3.5-5.1) mmol/L Chloride 102 (98-107) mmol/L Carbon Dioxide 23 (22-30) mmol/L Anion Gap 9 mmol/L BUN 7 (7-17) mg/dL Creatinine 0.50 L (0.52-1.04) mg/dL Est GFR (CKD-EPI)AfAm >90 (>60 ml/min/1.73 sqM) Est GFR (CKD-EPI)NonAf >90 (>60 ml/min/1.73 sqM) Glucose 87 (74-99) mg/dL Calcium 9.4 (8.4-10.2) mg/dL Total Bilirubin 0.4 (0.2-1.3) mg/dL AST 19 (14-36) U/L ALT 20 (4-34) U/L Alkaline Phosphatase 48 (38-126) U/L Total Protein 6.8 (6.3-8.2) g/dL Albumin 4.2 (3.5-5.0) g/dL HCG, Quant 300593.0 mIU/mL Urine Color Urine Appearance (Clear) Urine pH (5.0-8.0) Ur Specific [place] (1.001-1.035) Urine Protein (Negative) Urine Glucose (UA) (Negative) Urine Ketones (Negative) Urine Blood (Negative) Urine Nitrite (Negative) Urine Bilirubin (Negative) Urine Urobilinogen (<2.0) mg/dL Ur Leukocyte Esterase (Negative) Urine RBC (0-5) /hpf Urine WBC (0-5) /hpf Ur Squamous Epith Cells (0-4) /hpf Urine Bacteria (None) /hpf Blood Type O Positive Blood Type Recheck O Pos Bld Type Recheck Status No Antibody Screen NEGATIVE Spec Expiration Date 11/10/2024234311/07/24 Range/Units 15:58 WBC (4.50-10.00) 10*3/uL RBC (4.10-5.20) 10*6/uL Hgb (12.0-15.0) g/dL Hct (37.2-46.3) % MCV (80.0-97.0) fL MCH (27.0-32.0) pg MCHC (32.0-37.0) g/dL Plt Count (140-440) 10*3/uL MPV (9.5-12.2) fL Immature Gran % (Auto) % Neutrophils % % Lymphocytes % % Monocytes % % Eosinophils % % Basophils % % Immature Gran # (0.00-0.04) 10*3/uL Neutrophils # (1.80-7.70) 10*3/uL Lymphocytes # (0.90-5.00) 10*3/uL Monocytes # (0.20-1.00) 10*3/uL Eosinophils # (0.04-0.35) 10*3/uL Basophils # (0.00-0.10) 10*3/uL Sodium (137-145) mmol/L Potassium (3.5-5.1) mmol/L Chloride (98-107) mmol/L Carbon Dioxide (22-30) mmol/L Anion Gap mmol/L BUN (7-17) mg/dL Creatinine (0.52-1.04) mg/dL Est GFR (CKD-EPI)AfAm (>60 ml/min/1.73 sqM) Est GFR (CKD-EPI)NonAf (>60 ml/min/1.73 sqM) Glucose (74-99) mg/dL Calcium (8.4-10.2) mg/dL Total Bilirubin (0.2-1.3) mg/dL AST (14-36) U/L ALT (4-34) U/L Alkaline Phosphatase (38-126) U/L Total Protein (6.3-8.2) g/dL Albumin (3.5-5.0) g/dL HCG, Quant mIU/mL Urine Color Colorless Urine Appearance Clear (Clear) Urine pH 6.5 (5.0-8.0) Ur Specific [place] 1.006 (1.001-1.035) Urine Protein Negative (Negative) Urine Glucose (UA) Negative (Negative) Urine Ketones Negative (Negative) Urine Blood Negative (Negative) Urine Nitrite Negative (Negative) Urine Bilirubin Negative (Negative) Urine Urobilinogen <2.0 (<2.0) mg/dL Ur Leukocyte Esterase Small H (Negative) Urine RBC 1 (0-5) /hpf Urine WBC 7 H (0-5) /hpf Ur Squamous Epith Cells 3 (0-4) /hpf Urine Bacteria Occasional H (None) /hpf Blood Type Blood Type Recheck Bld Type Recheck Status Antibody Screen Spec Expiration Date Disposition Clinical Impression: Left knee sprain, Disposition: HOME SELF-CARE Condition: Good Instructions (If sedation given, give patient instructions): Knee Sprain (ED), Crutch Instructions (ED) Is patient prescribed a controlled substance at d/c from ED?: No Referrals: Beto Griffith Jr, DO [Primary Care Provider] - 1-2 days Rox Villela DO [Doctor of Osteopathic Medicine] - 1-2 days Sylvester Baldwin MD [Medical Doctor] - 1-2 days Time of Disposition: 16:49
[2024-11-07 17:40] VITALS: PULSE 86; RESP 18
== END 2024-11-07 17:40 | disposition home or self-care (01) ==
LOC: EC 13:26
DX: O9A.211 Injury, poisoning and certain other consequences of external causes complicating pregnancy, first trimester (principal); S83.92XA Sprain of unspecified site of left knee, initial encounter; X58.XXXA Exposure to other specified factors, initial encounter; Z3A.09 9 weeks gestation of pregnancy
CPT/HCPCS: 36415; 86900; 86901; 80053; 85025; 86850; 81001; 84702; 73562; 76801; 99284; L1830